=== PATIENT | male | born 1960 | race Caucasian/White ===

== ENCOUNTER 2018-02-23 16:08 | Emergency (ER) | payer SELFPAY ==
[2018-02-23 16:08] VITALS: BP 152/99; PULSE 90; RESP 18; TEMP 37; O2SAT 100; BMI 31.6
[2018-02-23] MEDS: HYDROcodone Bitartrate/Apap 5/325 Tablet PO (17:35)
[2018-02-23] MEDS: Clindamycin HCl 150 MG Capsule 450 MG PO (17:35)
--- NOTE | 2018-02-23 17:36 | ED.VISSUMM ---
- ER Visit Summary Date of Service: 02/23/18 Chief Complaint: Dental pain History of Present Illness: The patient is a 57 M presents the emergency department dental pain. Patient states he had symptoms since about gi. He states over the past 24 hours, he had increased swelling in his left lower jaw. He is not seen a dentist in years. He denies any fevers or chills. He states that it will hurt to open his mouth, but he denies any trouble opening his mouth. He said no trouble swallowing. He has no history of immunosuppression. He does not recall any trauma. Physical Examination: Exam is relatively unremarkable. There is a well-appearing male in no acute distress. Posterior oropharynx is widely patent. There is no swelling of the submental space. He has no trismus or stridor. He has widespread dental disease. There is abscess at the base of tooth #21. There is no submental spread. He has no change in phonation. His neck is supple. Test Results: [] Emergency Department Course and Treatment: Patient has localized dental abscess. There is no evidence of Zia angina. He has no trismus or stridor. He has allergy to penicillin. He will be treated with clindamycin. He was counseled on concerning symptoms and reasons to return. Patient be discharged home Treatment Plan: [] Disposition: Discharge Impression: Dental abscess of tooth #21 This note was generated with [facility] dictation software. It may contain incorrect words, spelling, and punctuation that were not noted in review of the chart prior to signing ED Disposition - Plan for ED Patient: Chief Complaint: Dental Instructions: ED Abscess Dental Prescriptions: Hydrocodone Bitart/Apap 5-325 [Mitchells 5MG-325MG] 1 tab PO Q6H PRN PRN 3 Days #10 tab PRN Reason: Pain Clindamycin [Cleocin] 300 mg PO 4X/DAY #80 cap
--- OUTSIDE RECORDS SUMMARY | 2018-04-07 16:36 | XMS RPT_ITS ---
:1960 Author Organization OH[employer] Support Name Relationship Address Phone AYALA PICKENS Unavailable [address] + [place] [address] NEGAR, CRYSTAL Unavailable [address] + [place] [address] [employer] Unavailable [address] + [place] [address] AYALA PICKENS Unavailable [address] + [place] [address] NEGAR, CRYSTAL Unavailable [address] + [place] [address] [employer] Unavailable [address] + [place] [address] AYALA PICKENS Unavailable [address] + [place] [address] NEGAR, CRYSTAL Unavailable [address] + [place] [address] [employer] Unavailable [address] + [place] [address] AYALA PICKENS Unavailable [address] + [place] [address] NEGAR, CRYSTAL Unavailable [address] + [place] [address] [employer] Unavailable [address] + [place] [address] AYALA PICKENS Unavailable [address] + [place] [address] NEGAR, CRYSTAL Unavailable [address] + [place] [address] [employer] Unavailable [address] + [place] [address] NEGAR AYALA Unavailable [address] + [place] [address] NEGAR, CRYSTAL Unavailable [address] + [place] [address] [employer] Unavailable [address] + [place] [address] Care Team Providers Name Role Phone JulianeSunil carter Attending Unavailable Primay Care Physicia, No Primary Care Unavailable Agyepong, Terry Admitting Unavailable Primay Care Physicia, No Primary Care Unavailable Tereletsky, Clint Attending Unavailable Kandice, Neto Consulting Unavailable Agyepong, Terry Admitting Unavailable Agyepong, Terry Attending Unavailable Primay Care Physicia, No Primary Care Unavailable Christi, Alexandre Consulting Unavailable Fiorita, Kofi Consulting Unavailable Tereletsky, Clint Consulting Unavailable Agyepong, Terry Admitting Unavailable Tereletsky, Clint Attending Unavailable Primay Care Physicia, No Primary Care Unavailable Christi, Alexandre Consulting Unavailable Fiorita, Kofi Consulting Unavailable Tereletsky, Clint Consulting Unavailable Agyepong, Terry Admitting Unavailable Tereletsky, Clint Attending Unavailable Primay Care Physicia, No Primary Care Unavailable Christi, Alexandre Consulting Unavailable Tereletsky, Clint Consulting Unavailable Agyepong, Terry Admitting Unavailable Tereletsky, Clint Attending Unavailable Primay Care Physicia, No Primary Care Unavailable Christi, Alexandre Consulting Unavailable Tereletsky, Clint Consulting Unavailable PEYTON ALCANTARA Attending Unavailable CONPEYTON ROBERTSON Attending Unavailable PROBLEMS PROBLEMS DATE TYPE CONDITION / CODE ATTENDING STATUS SOURCE 03/05/2018 Unknown M27.2 - Florentino Cerda Community conditions of [facility] / M27.2(ICD-10) Repository 03/01/2018 Active Cellulitis and PEYTON ALCANTARA Active [facility] abscess of mouth / ALTAG[place]ACIA Other [place] K12.2(ICD-10) Repository 03/05/2018 Unknown K08.89 - Other Sunil Cardozo Active [place] specified Community disorders of [facility] Hospital and supporting Repository structures / K08.89(ICD-10) 02/22/2018 Active Local infection of PEYTON ALCANTARA Active [facility] the skin and ALTAGRACIA Other [place] subcutaneous Repository tissue, unspecified / L08.9(ICD-10) PROCEDURES PROCEDURES No Procedure Records FoundRESULTS RESULTS DISCHARGE SUMMARY Observed: 03/05/2018 Status: F Source: [place] 10:36 AM [facility] REPOSITORY [facility] Medical Records Department [address] [place] [address] Discharge Summary 03/05/18 1030 MR#: [id number] Acct: [id number] Name: KYLIE PICKENS Rep #: [id number] : 1960 57 From: Clint Cerda DO PCP: Care Physician, No Primary Status: DIS IN Y Location: [facility]3 [id number] Discharge Date and Diagnosis Date of Admission: 03/01/18 Date of Discharge: 03/05/18 - Primary Discharge Diagnosis #1 bacterial infection of the left sqe space and tongue base without evidence of abscess formation from oral vera - Secondary Discharge Diagnosis Chronic Problems HTN (hypertension) (Chronic) Hospital Course and Treatment Operations: None Procedures: None Summary of Care Provided: The patient is a 57 year old M who was directly admitted to [place] [address] after being seen at [facility] emergency room with complaints of left jaw pain. Patient had localized swelling to the left jaw area and went to [facility] approximately a week before was given clindamycin and ibuprofen, he was then seen at the emergency room at [facility] approximately 6 days prior and given clindamycin and [place]. Patient was directly admitted to [place] [address] for further care from [facility] due to lack of oral surgeons at [facility]. Patient was admitted to [place] [address], he was placed on IV clindamycin and IV Levaquin, he was seen in consultation by infectious diseases who recommended stopping the Levaquin and continuing the clindamycin. Initially oral surgery was consulted to see the patient, however, after talking with oral surgery by phone, they requested that the patient come to their office for complete examination and agreed after discussing the patient's case that he should remain on clindamycin while in the hospital. On 03/04/18, patient was seen and examined:- Physical Exam General: Alert, Oriented x3, Cooperative, No apparent distress HEENT: Atraumatic, PERRLA, EOMI, Normocephalic, - - There is marked swelling noted over the patient's left submandibular area and over the angle of the jaw on the left Oral: Moist Mucosa Neck: Supple, Trachea Midline, Thyroid Normal Size and Texture Lungs: Clear to auscultation, Normal air movement, No rhonchi, No wheeze, No rales Cardiovascular: Regular rate, No murmurs Abdomen: Bowel Sounds Present, Soft, Non Tender, Non-Distended, No hernias noted Extremities: No clubbing, No cyanosis, No edema, Capillary Refill Less than 3 Seconds Skin: No rashes, No breakdown Musculoskeletal: No Tenderness to Palpation of Joints or Extremities Neurological: Cranial nerves II-XII grossly intact, Neuro grossly intact, Sensory exam intact to light touch and pain, Coordination normal Psych/Mental Status: Normal Affect, Appropriate, Alert and oriented to time, place, person, mood and affect Vital Signs as outlined in medical record On 03/04/18, patient was seen and examined felt to be in stable condition for discharge home, he was to follow-up with oral surgery within the week for complete exam in their office. - Physical Exam Vital Signs Temp Pulse Resp BP Pulse Ox 97.6 F L 73 16 138/97 H 96 03/04/18 09:30 03/04/18 09:30 03/04/18 09:30 03/04/18 09:30 03/04/18 09:30 Oxygen Delivery Method Room Air Weight: 99.79 kg Body Mass Index (BMI) 29.8 Intake and Output for Last 24 Hours Intake Total 732 / 732 1200 / 1200 Output Total 450 / 450 Balance 282 / 282 1200 / 1200 Discharge Activity: Return to Normal Activity Weight Bearing Status: Full weight bearing Home Medications: Medications to take at Discharge Clindamycin [Cleocin] 300 mg PO 4X/DAY #80 cap 03/04/18 Oxycodone [Oxyir] 10 - 15 mg PO Q4H PRN PRN 7 Days #30 tab 03/04/18 Following Prescrptions Were Given to Patient: Oxycodone [Oxyir] 10 - 15 mg PO Q4H PRN PRN 7 Days #30 tab PRN Reason: Severe Pain (-01/07) Clindamycin [Cleocin] 300 mg PO 4X/DAY #80 cap Primary Care Physician: Care Physician,No Primary [Primary Care Provider] - Please Follow Up With: Kofi Ulloa DDS When: this Friday Disposition: Home Minutes spent on discharge:: 32 Patient Condition:: Stable Medical Necessity - Tobacco Use Smoking Status: Current every day smoker - Last smoke about a week ago Tobacco Use: Cigarettes Meaningful Use Info Meaningful Use Diagnoses (Choose all that apply): None applicable Code Visit Inpatient E AND M: 16802 Disch Hosp 03/05/18 1036 <Electronically signed by Clint Cerda DO> Date Clint Cerda DO Cosigner Signature (if applicable): Date CC: No Primary Care Physician; Clint Cerda DO Signed DISCHARGE INSTRUCTION Observed: 03/04/2018 Status: F Source: [place] 11:56 AM [facility] REPOSITORY [facility] Medical Records Department [address] [place] [address] Instructions for Home/Discharge Instructions 03/04/18 1155 MR#: [id number] Acct: [id number] Name: KYLIE PICKENS Rep #: [id number] : 1960 57 From: Clint Cerda DO PCP: Care Physician, No Primary Status: ADM IN - Discharge Diagnoses Current Active Problems: Current Active and Chronic Problems Odontogenic infection of jaw (Acute) HTN (hypertension) (Chronic) You will use the following diet at home:: No restrictions Your food should be the consistency of: Regular Your liquids should be the consistency of: Regular/Thin Discharge Activity: Return to Normal Activity Weight Bearing Status: Full weight bearing Allergies/Adverse Reactions: Allergies Penicillins Adverse Reaction (Verified 02/23/18 16:12) Hives Medications to take at Discharge Clindamycin [Cleocin] 300 mg PO 4X/DAY #80 cap 03/04/18 Oxycodone [Oxyir] 10 - 15 mg PO Q4H PRN PRN 7 Days #30 tab 03/04/18 The following prescriptions were given: Oxycodone [Oxyir] 10 - 15 mg PO Q4H PRN PRN 7 Days #30 tab PRN Reason: Severe Pain () Clindamycin [Cleocin] 300 mg PO 4X/DAY #80 cap Primary Care Physician: Care Physician,No Primary [Primary Care Provider] - Test Results: Test results from this visit will be discussed in further detail at your follow-up appointment, if applicable. Please Follow Up With: Kofi Ulloa DDS When: this Friday03/04/18 1156 <Electronically signed by Clint Cerda DO> Date Clint Cerda DO CC: No Primary Care Physician; Alexandre Barraza MD CBC W/DIFF, AUTOMATED Collected: 03/04/2018 Status: F Source: [place] 5:42 AM [facility] REPOSITORY TYPE CODE TESTS RESULT OUT OF RANGE REFERENCE UNITS LAB L100.1000 4.4-11.0 K/mm3 Normal WBC 6.4 LAB L100.1200 4.6-6.2 M/mm3 Normal RBC 4.67 LAB L100.1300 13.0-16.5 g/dl Normal HGB 13.5 LAB L100.1400 40-54 % Normal HCT 40.9 LAB L100.1500 80-94 fL Normal MCV 87.6 LAB L100.1600 27.0-32.0 pg Normal MCH 28.9 LAB L100.1700 32-36 g/gl Normal MCHC 33.0 LAB L100.1810 11.6-14.6 % Normal RDW CV 13.0 LAB L100.1820 35.1-43.9 fl Normal RDW SD 41.1 LAB L100.1900 150-450 K/mm3 Normal PLT 238 LAB L100.2000 6.2-12.0 fl Normal MPV 10.4 LAB L100.2100 47-70 % Normal NEUT% 52.5 LAB L100.2200 19-41 % Normal LY% 30.0 LAB L100.2300 0-10 % High MONO% 13.0 LAB L100.2400 0-5 % Normal EO% 3.5 LAB L100.2500 0-1 % Normal BASO% 0.8 LAB L100.2550 0.0-0.9 % Normal IM GRAN % 0.200 Result Comment: IG% - Immature Granulocytes (promyelocytes, myelocytes and metamyelocytes) > 1% indicates that a LEFT SHIFT is Present. LAB L100.2620 2.0-7.7 X10 3/uL Normal Absolute Neut 3.4 LAB L100.2720 0.83-4.51 X10 3/ul Normal Absolute Lymph 1.91 Performed By: #### L100.0100 #### [facility] [address] [place], [address] CBC W/DIFF, AUTOMATED Collected: 03/03/2018 Status: F Source: [place] 8:30 AM [facility] REPOSITORY TYPE CODE TESTS RESULT OUT OF RANGE REFERENCE UNITS LAB L100.1000 4.4-11.0 K/mm3 Normal WBC 7.6 LAB L100.1200 4.6-6.2 M/mm3 Low RBC 4.59 LAB L100.1300 13.0-16.5 g/dl Normal HGB 13.3 LAB L100.1400 40-54 % Normal HCT 40.3 LAB L100.1500 80-94 fL Normal MCV 87.8 LAB L100.1600 27.0-32.0 pg Normal MCH 29.0 LAB L100.1700 32-36 g/gl Normal MCHC 33.0 LAB L100.1810 11.6-14.6 % Normal RDW CV 13.1 LAB L100.1820 35.1-43.9 fl Normal RDW SD 42.0 LAB L100.1900 150-450 K/mm3 Normal PLT 200 LAB L100.2000 6.2-12.0 fl Normal MPV 9.7 LAB L100.2100 47-70 % Normal NEUT% 64.4 LAB L100.2200 19-41 % Normal LY% 24.4 LAB L100.2300 0-10 % Normal MONO% 9.6 LAB L100.2400 0-5 % Normal EO% 1.1 LAB L100.2500 0-1 % Normal BASO% 0.4 LAB L100.2550 0.0-0.9 % Normal IM GRAN % 0.100 Result Comment: IG% - Immature Granulocytes (promyelocytes, myelocytes and metamyelocytes) > 1% indicates that a LEFT SHIFT is Present. LAB L100.2620 2.0-7.7 X10 3/uL Normal Absolute Neut 4.9 LAB L100.2720 0.83-4.51 X10 3/ul Normal Absolute Lymph 1.85 Performed By: #### L100.0100 #### [facility] [address] [place], [address] CONSULTATION Observed: 03/02/2018 Status: F Source: [place] 10:39 AM [facility] REPOSITORY [facility] Medical Records Department [address] [place] [address] Consultation 03/02/18 1035 MR#: [id number] Acct: [id number] Name: KYLIE PICKENS Rep #: [id number] : 1960 57 From: Neto Woodson MD PCP: Care Physician, No Primary Status: ADM MICKIE Y Location: [place] [address] Reason for Consult: Odontogenic infection Consulted by: Dr. Gama History of Present Illness: The patient is a 57 year old M [] This is a 57-year-old gentleman with a history of hypertension untreated who presents with roughly a 10-day course of progressive pain and swelling in the left side of his jaw with difficulty opening his mouth. Patient was seen in emergency department at [facility] roughly a week ago and was given oral clindamycin as well as a pain medication with no clinical improvement. Patient did have a leukocytosis and low-grade fevers upon presentation. Patient does have a history of poor dentition. No cardiopulmonary distress. No chest pain. Denies any night sweats. His symptoms initially started around which was roughly 10 days ago. He is otherwise hemodynamically stable. He does have allergy to penicillin which causes hives and blisters. Currently on fluoroquinolone levofloxacin as well as parenteral clindamycin. - Medical History Past Medical History (Chronic Problems): Chronic Problems HTN (hypertension) (Chronic) Allergies/Adverse Reactions: Allergies Penicillins Adverse Reaction (Verified 02/23/18 16:12) Hives Home Medications: Ambulatory Orders Medication Instructions Recorded Clindamycin [Cleocin] 300 mg PO 4X/DAY #80 cap 02/23/18 Vital Signs Temp Pulse Resp BP Pulse Ox 99.2 F H 80 16 129/63 H 93 03/02/18 06:26 03/02/18 06:26 03/02/18 06:26 03/02/18 06:26 03/02/18 07:50 Oxygen Delivery Method Room Air Weight: 99.79 kg Body Mass Index (BMI) 29.8 Laboratory Tests Past 24 Hrs WBC 14.8 H RBC 4.72 Hgb 13.7 Hct 41.5 MCV 87.9 MCH 29.0 MCHC 33.0 - Other Studies Radiology: [] Other Studies: [] Route of nutrition/ use of supplements: [] Nutritional Intake: [] IV Site: [] Travis Catheter: [] Patient is alert does not appear toxic. Left side of his jaw swollen with localized tenderness. No crepitus. Lungs are clear heart exam S1-S2 abdomen soft nontender his dentition is very poor. - Assessment/Plan Antibiotics: [] Assessment/Plan: [] Active and Suspected Problems Odontogenic infection of jaw (Acute) At this time we will continue empiric antimicrobial therapy in the form of levofloxacin and clindamycin. Oral surgeon has been consulted. Follow his white count and clinical course closely. 03/02/18 1039 <Electronically signed by Neto Woodson MD> Date Neto Woodson MD Cosigner Signature (if applicable): Date CC: No Primary Care Physician; Alexandre Barraza MD; Kofi Ulloa DDS Signed HISTORY AND PHYSICAL Observed: 03/02/2018 Status: F Source: [place] EXAM 9:57 AM [facility] REPOSITORY [facility] Medical Records Department [address] [place] [address] History and Physical 03/01/18 9867 MR#: [id number] Acct: [id number] Name: KYLIE PICKENS Rep #: [id number] : 1960 57 From: Terry Booth MD PCP: Care Physician, No Primary Status: ADM MICKIE Y Location: [place] [address] Problem List (1) Odontogenic infection of jaw Status: Acute (2) HTN (hypertension) Status: Chronic History of Present Illness Date of Admission: 03/01/18 Chief Complaint: Left jaw pain The patient is a 57 year old M with a significant history of hypertension who presented because of progressively worsening excruciating pain of his left jaw that started about a week and a half ago. Patient was transferred from [facility] ED because of lack of specialist to see patient. Patient described the quality of his pain as severe and aching. He reports that the pain has been radiating to his entire head but he thinks the radiation started because of excessive use of ibuprofen. His pain is aggravated with drinking. Patient reports night sweats. Patient went to [facility] about a week ago and was given clindamycin and ibuprofen. He was at our emergency department about 6 days ago and was given clindamycin p.o. and [place]. He reported that because he does not like taking narcotic medication he did not take [place] but he continued to take ibuprofen and extra strength Tylenol. Because he was not he was not getting better patient again presented to [facility] today (03-01-2018). At [facility] ED patient had a temperature of 100.6. He had a blood pressures of 170/96; 155/93; 118/72. His heart rate ranged from 84- to 92. CT of the maxillofacial with contrast at [facility] ED showed findings suggestive of extensive odontogenic infection involving the left sqe space and tongue base without evidence of abscess formation; and prominent sialoadenitis involving the left submandibular gland. At [facility] because patient reported an allergy to penicillin he was given clindamycin and Levaquin IV and he was brought to the hospital. He was also given Toradol. On presentation at our hospital patient reported feeling a little better and attributed his temporal relief to the regimen given at [facility] ED. Allergy: Patient reported that he has hives on his body and rashes on his tongue when he receives penicillin. Patient reports that the last time that he saw a dentist was years ago. He reports pulling his teeth by himself. He reported the last time that he pulled his teeth by himself was about 7 years ago. Past Medical History Past Medical History (Chronic Problems): Chronic Problems HTN (hypertension) (Chronic) Allergies Penicillins Adverse Reaction (Verified 02/23/18 16:12) Hives Home Medications: Ambulatory Orders Medication Instructions Recorded Clindamycin [Cleocin] 300 mg PO 4X/DAY #80 cap 02/23/18 Surgical History: - - Rales in left knee and ankle Lives: Alone Smoking Status: Current every day smoker - Last smoke about a week ago Tobacco Use: Cigarettes Alcohol: None Review of Systems Constitutional: Denies: Chills, Fever, Weight Change HEENT: Reports: Head Aches. Denies: Sinus Congestion, Sinus Drainage Cardiovascular: Denies: Chest Pain, Palpitations Respiratory: Denies: Cough, Shortness of breath at rest, Sputum production Gastrointestinal: Denies: Abdominal Pain, Nausea, Vomiting Genitourinary: Denies: Dysuria Musculoskeletal: Denies: Joint Pain, Joint Tenderness Skin: Denies: Rash, Wounds Neurological: Denies: Numbness, Tingling, Focal weakness Psychiatric: Denies: Anxiety, Depression, Homicidal Ideations, Suicidal Ideations Hematologic/ Lymphatic: Denies: Easy Bruising, Easy Bleeding VTE Information - Inpt Only VTE Present on Admission: No VTE Mechan Device Prophylaxis: None VTE Pharm Prophylaxis ordered?: Yes Patient Problems: Active and Suspected Problems Odontogenic infection of jaw (Acute) - Physical Exam General: Alert, Oriented x3, Cooperative HEENT: Atraumatic, - - Swelling of left maxillary and mandible area. Poor dentition with loss of multiple teeth. Tender left mandibular and maxillary area. Neck: Supple, No JVD, Negative Carotid Bruits Lungs: Clear to auscultation, Normal air movement Cardiovascular: Regular rate, No murmurs Abdomen: Bowel Sounds Present, Soft, Non Tender Extremities: No edema, Capillary Refill Less than 3 Seconds Skin: No rashes, No breakdown Musculoskeletal: No Tenderness to Palpation of Joints or Extremities Neurological: Neuro grossly intact Psych/Mental Status: Normal Affect, Appropriate Vital Signs Temp Pulse Resp BP Pulse Ox 99.8 F H 94 18 145/86 H 95 03/01/18 22:09 03/01/18 22:09 03/01/18 22:09 03/01/18 22:09 03/01/18 22:09 Oxygen Delivery Method Room Air Weight: 99.79 kg Body Mass Index (BMI) 29.8 Assessment/Plan All Active Problems Odontogenic infection of jaw (Acute) The patient is a 57 year old M with a significant history of hypertension who was transferred from [facility] ED because of progressively worsening excruciating pain of his left jaw that started about a week and a half ago and with radiographic evidence of extensive odontogenic infection involving the left sqe space and tongue base without evidence of abscess formation; as well as prominence sialoadenitis involving the left submandibular gland. Extensive odontogenic infection with Sialoadenitis We will continue patient on clindamycin IV and Levaquin IV that was started from [facility] ED. Initially patient was started on morphine IV as needed for pain. Because he continued to have severe pain with IV morphine, his pain regimen was changed to Dilaudid IV. However because he continued to have pain, Toradol IV was added to his regimen. Supportive treatment with IV fluids and as needed antiemetics. Tylenol for fever. Consults: Oral/Maxillofacial surgeon and ID specialist to optimize management. Hypertension Patient reports previous history of hypertension for which he was taking blood pressure medication. However he reports not taking blood pressure medication for a while. It could be his pain causing elevated blood pressures or essential hypertension. Hydralazine as needed for pain.. Tobacco abuse Reportedly patient has not smoked for about 1 week. The day before his admission he smoked tobacco and felt very nauseous. Patient was counseled. He declines nicotine patch. He is confident that he will not smoke again. DVT prophylaxis Subcutaneous heparin. Code Visit Inpatient E AND M: 35883 Init Hosp L3 03/02/18 0957 <Electronically signed by Terry Booth MD> Date Terry Booth MD Cosigner Signature: Date (if applicable) CC: No Primary Care Physician; Terry Booth MD Signed CBC W/DIFF, AUTOMATED Collected: 03/02/2018 Status: F Source: [place] 5:15 AM [facility] REPOSITORY TYPE CODE TESTS RESULT OUT OF RANGE REFERENCE UNITS LAB L100.1000 4.4-11.0 K/mm3 High WBC 14.8 LAB L100.1200 4.6-6.2 M/mm3 Normal RBC 4.72 LAB L100.1300 13.0-16.5 g/dl Normal HGB 13.7 LAB L100.1400 40-54 % Normal HCT 41.5 LAB L100.1500 80-94 fL Normal MCV 87.9 LAB L100.1600 27.0-32.0 pg Normal MCH 29.0 LAB L100.1700 32-36 g/gl Normal MCHC 33.0 LAB L100.1810 11.6-14.6 % Normal RDW CV 13.2 LAB L100.1820 35.1-43.9 fl Normal RDW SD 42.5 LAB L100.1900 150-450 K/mm3 Normal PLT 211 LAB L100.2000 6.2-12.0 fl Normal MPV 10.2 LAB L100.2100 47-70 % High NEUT% 80.5 LAB L100.2200 19-41 % Low LY% 9.0 LAB L100.2300 0-10 % High MONO% 10.1 LAB L100.2400 0-5 % Normal EO% 0.1 LAB L100.2500 0-1 % Normal BASO% 0.1 LAB L100.2550 0.0-0.9 % Normal IM GRAN % 0.200 Result Comment: IG% - Immature Granulocytes (promyelocytes, myelocytes and metamyelocytes) > 1% indicates that a LEFT SHIFT is Present. LAB L100.2620 2.0-7.7 X10 3/uL High Absolute Neut 11.9 LAB L100.2720 0.83-4.51 X10 3/ul Normal Absolute Lymph 1.34 Performed By: #### L100.0100 #### [facility] [address] [place], [place], [address] BASIC METABOLIC Collected: 03/02/2018 Status: F Source: [place] PROFILE (BMP) 5:15 AM [facility] REPOSITORY TYPE CODE TESTS RESULT OUT OF RANGE REFERENCE UNITS LAB L501.0100 74-106 mg/dL High GLU 111 Result Comment: Fasting Glucose result from 100 to 125 mg/dL suggests IMPAIRED HOMEOSTASIS per A.D.A. criteria. Please note revised GLUCOSE reference range effective 2017. LAB L501.1000 7-18 mg/dL Normal BUN 17 LAB L501.1100 0.70-1.30 mg/dL Normal CREAT,SERUM 1.04 Result Comment: The validity of the calculated GFR AND GFRAA in patients over 70 years has not been determined. Clinical correlation is essential. LAB L501.1110 >60 mL/min Normal EST GFR 78 Result Comment: Non- GFR Calc LAB L501.1115 >60 mL/min Normal EST GFR - AA 94 Result Comment: GFR Calc LAB L501.1255 ml/min Normal Estimated CRCL 84.98 LAB L501.1300 10-20 RATIO Normal BUN/CRE 16.3 LAB L501.2200 8.5-10 mg/dL Normal .1 CA 8.5 LAB L501.5300 136-14 mmol/L Normal 5 NA 139 LAB L501.5600 3.5-5. mmol/L Normal 1 K 3.7 LAB L501.5900 98-107 mmol/L Normal CL 103 LAB L501.6100 21.0-3 mmol/L Normal 2.0 CO2 26.0 LAB L501.6200 5-15 Normal GAP 10 Performed By: #### L500.2500 #### [facility] [place], [address] ED NOTE Observed: 03/01/2018 Status: COMPLETED Source: [place] 9:13 PM [facility] REPOSITORY HNO ID: [id number] Author: Diana AcevedoRn) Sonal, RN Service: Emergency Medicine Author Type: Registered Nurse Type: ED Notes Filed: 03/07/2018 3:38 AM Note Text: CHART ACCESSED FOR PI CHART AUDIT on 03/07/18 @ 0338 ED NOTE Observed: 03/01/2018 Status: COMPLETED Source: [place] 9:05 PM [facility] REPOSITORY HNO ID: [id number] Author: Aida (Rn) Edd, RN Service: Emergency Medicine Author Type: Registered Nurse Type: ED Notes Filed: 03/01/2018 9:13 PM Note Text: Pt w/ swelling to left face unchanged. Pt denies any pain at this time. Pt has been dozing past 2hrs. Resp easy. Skin warm AND dry. Saline lock x2 remain patent AND in place. Pt instructed to present to [place] ED for admission to hospital as a direct admit to room 314. Also instructed to remain NPO. Verbalized understanding. ED NOTE Observed: 03/01/2018 Status: COMPLETED Source: [place] [address]:[id number] PM [facility] REPOSITORY HNO ID: [id number] Author: Aida AcevedoRnTelma Puga RN Service: Emergency Medicine Author Type: Registered Nurse Type: ED Notes Filed: 03/01/2018 7:22 PM Note Text: Patient informed: the name of medication, why we are giving it, possible side effects, what they may expect to feel, and was offered a chance to ask questions, prior to the administration of clindamycin. ED NOTE Observed: 03/01/2018 Status: COMPLETED Source: [place] 6:53 PM [facility] REPOSITORY HNO ID: [id number] Author: Rosie Mallory RN Service: Emergency Medicine Author Type: Registered Nurse Type: ED Notes Filed: 03/01/2018 6:53 PM Note Text: Patient informed: the name of medication, why we are giving it, possible side effects, what they may expect to feel, and was offered a chance to ask questions, prior to the administration of toradol. ED NOTE Observed: 03/01/2018 Status: COMPLETED Source: [place] 6:53 PM [facility] REPOSITORY HNO ID: [id number] Author: Rosie Mallory RN Service: Emergency Medicine Author Type: Registered Nurse Type: ED Notes Filed: 03/01/2018 6:56 PM Note Text: Patient ambulates to bathroom ED NOTE Observed: 03/01/2018 Status: COMPLETED Source: [place] 6:44 PM [facility] REPOSITORY HNO ID: [id number] Author: Rosie Mallory RN Service: Emergency Medicine Author Type: Registered Nurse Type: ED Notes Filed: 03/01/2018 6:44 PM Note Text: Warm blanket,beverage and pillow given to patient. Lights turned off. ED PROV NOTE Observed: 03/01/2018 Status: COMPLETED Source: [place] 5:49 PM [facility] REPOSITORY HNO ID: [id number] Author: Peyton Walker DO Service: Emergency Medicine Author Type: Physician Type: ED Provider Notes Filed: 03/01/2018 8:23 PM Note Text: ED Provider Note Patient Name: Kylie Pickens Sr SERVICE DATE: 03/01/18 History Patient presents with: Face Pain Kylie Pickens Sr is a 57 year old male with history of no chronic medical problems who presents with Face Pain. Patient took prescription medication prior to arrival. - Symptoms began 1.5 weeks prior to arrival. - Severity: moderate - Timing: constant - Quality: sore - Face Pain is exacerbated by movement, chewing, palpation. - Face Pain is not exacerbated by swallowing. - Symptoms are associated with facial swelling. - Symptoms are not associated with chills, fever, nausea, rash, shortness of breath, vomiting and neck pain, difficulty swallowing, sore throat, dental pain. - Improved by nothing. - Not improved by clindamycin. Patient presents with left facial swelling that started 1.5 weeks ago. He came to the ED 1 week ago, requesting just antibiotic and refused labs or imaging at that time. ? Source of the swelling at that time and patient was started on clindamycin, but has had no improvement. PAST MEDICAL HISTORY Diagnosis Date - Broken lower leg Left leg/ Had rods placed PAST SURGICAL HISTORY Procedure Laterality Date - ORTHOPEDICS SURGERY HX left lower leg FAMILY HISTORY Problem Relation Age of Onset - Heart Father - Hypertension Brother - Heart Mother Social History Social History Main Topics - Smoking status: Current Every Day Smoker Packs/day: 0.50 Types: Cigarettes - Smokeless tobacco: Never Used - Alcohol use No - Drug use: No - Sexual activity: Not on file ALLERGIES Allergen Reactions - Penicillins Hives, Itching Review of Systems Constitutional: Negative for chills and fever. HENT: Positive for facial swelling. Negative for congestion, dental problem, drooling, ear discharge, ear pain, rhinorrhea, sore throat and trouble swallowing. Eyes: Negative for photophobia, pain, redness and visual disturbance. Respiratory: Negative for shortness of breath and stridor. Cardiovascular: Negative for chest pain. Gastrointestinal: Negative for nausea and vomiting. Musculoskeletal: Negative for neck pain and neck stiffness. Skin: Negative for rash and wound. Allergic/Immunologic: Negative for immunocompromised state. Neurological: Negative for weakness, numbness and headaches. Psychiatric/Behavioral: Negative for agitation and confusion. Physical Exam BP 165/93 Pulse 93 Temp (Src) 100.2 (Temporal Artery) Resp 18 Ht 6' 0 (1.83m) Wt 215 lb (97.5kg) SpO2 98% BMI 29.15 kg/(m2). Physical Exam Constitutional: He is oriented to person, place, and time. He appears well-developed and well-nourished. No distress. HENT: Head: Normocephalic and atraumatic. Head is without raccoon's eyes, without abrasion, without contusion, without laceration, without right periorbital erythema and without left periorbital erythema. Right Ear: External ear normal. Left Ear: External ear normal. Mouth/Throat: Uvula is midline, oropharynx is clear and moist and mucous membranes are normal. No trismus in the jaw. No uvula swelling. No oropharyngeal exudate, posterior oropharyngeal edema or posterior oropharyngeal erythema. There is swelling along the left middle buccal mucosa down adjacent to left gum. No tenderness to palpate the teeth. No cellulitis of the face. No crepitus. There is soft fullness left submandibular area, no firmness to the left submandibular area, no elevation of the tongue. Eyes: Conjunctivae are normal. No scleral icterus. Neck: Trachea normal, normal range of motion, full passive range of motion without pain and phonation normal. Neck supple. No JVD present. Cardiovascular: Normal rate, regular rhythm and intact distal pulses. Pulmonary/Chest: Effort normal and breath sounds normal. No stridor. Neurological: He is alert and oriented to person, place, and time. No cranial nerve deficit. Skin: Skin is warm and dry. Capillary refill takes less than 2 seconds. No rash noted. He is not diaphoretic. No erythema. No pallor. Psychiatric: He has a normal mood and affect. His behavior is normal. Nursing note and vitals reviewed. Diagnostic Testing ED Labs Ordered and Reviewed CBC + AUTO DIFF (AK,AV,EU,FV,HL,MIGUEL,MM,SP) - Abnormal; Notable for the following: Result Value Ref Range WBC 13.4 (*) 4.8 - 10.8 thou/cmm Abs. Neut(Anc) 10.72 (*) 3.00 - 5.67 thou/cmm All other components within normal limits BASIC METABOLIC PANEL (AK,AV,EU,FV,HL,MIGUEL,MM,SP) MDRD GFR Procedures ED Course / Clinical Impression Clinical Impressions as of Mar 01 2010 Infection of mouth Infection, face MDM / Disposition / Plan Patient agreeable to labs and CT scan today. These have been ordered. Delay on CT results. I discussed CT results and need for transfer. Patient remains in no distress, air way intact, no change in voice. Vitals stable. He is only willing to be admitted to [place]. He is refusing to go to [place] or [facility]. He lives in [place]. Patient has a severe allergy to PCN, so I am limited in antibiotic choose. I have given him IV clindamycin and Levaquin for now. I spoke with Dr. Booth, hospitalist at [place], he is accepting for transfer. I have discussed acceptance with the patient. Patient is refusing ambulance transport. He states he wants to drive himself to [place]. He will sign out AMA since he is refusing transfer by ambulance where he can be continuously monitored. He states he will drive directly to [facility]. DispositionThe patient was AMA (transfer to [place], but refusing transport, so signed out AMA to drive himself to [place]). Condition at disposition is stable. SIGNATURE: Peyton Walker, DO Peyton Walker, 03/01/182022 ED NOTE Observed: 03/01/2018 Status: COMPLETED Source: [place] 5:21 PM [facility] REPOSITORY HNO ID: [id number] Author: Rosie Veloz) ARISTEO Mallory Service: Emergency Medicine Author Type: Registered Nurse Type: ED Notes Filed: 03/01/2018 5:21 PM Note Text: Beverage given to patient. He is sitting at bedside. Conversing normaly. ED NOTE Observed: 03/01/2018 Status: COMPLETED Source: [place] 4:38 PM [facility] REPOSITORY HNO ID: [id number] Author: Rosie Veloz) Mohamud, ARISTEO Service: Emergency Medicine Author Type: Registered Nurse Type: ED Notes Filed: 03/01/2018 7:02 PM Note Text: Returned from radiology CT MAXILLOFACIAL WITH Observed: 03/01/2018 Status: F Source: [employer] CONTRAST 4:38 PM [facility] REPOSITORY Performed at [facility] APPROVED BY: GIOVANNY SHERWOOD MD EXAMINATION: CT MAXILLOFACIAL WITH CONTRAST CLINICAL HISTORY: Facial pain. Difficulty opening mouth. Technique: Spiral high resolution axial contrast enhanced images were obtained through the facial bones with sagittal and coronal planar reconstructions. MQ: [id number] Contrast: Intravenous 100 ml of Omnipaque 300 Dose-Length Product (DLP): 577 mGy*cm. CT Dose Reduction Employed: Iterative recon and mAs-kVp adjusted using patient size-age COMPARISON: None. RESULT: Soft Tissues: Evaluation is quite limited by extensive artifact from gross patient motion. Within this constraint, there is mild asymmetric enlargement of the left medial pterygoid muscle and moderate enlargement of the insertion of the left masseter muscle. There is also a large dental caries in the residual left third mandibular molar which, given the distribution of the above findings, would sug gest odontogenic infection with contiguous involvement of the left masseter space. There is also asymmetric enlargement of the underlying left submandibular gland with prominent subcutaneous edema in t he left submandibular region suggesting sialoadenitis. No evidence of radiopaque calculus along the course of [place]'s duct on the left. There is loss in definition of the normal soft tissue planes o f the intrinsic and extrinsic muscles of the tongue to the left of midline in this region suggesting contiguous inflammation as well. No clear evidence of an extraluminal fluid collection to suggest ab scess formation. The right submandibular and both parotid glands appear to be within normal limits. Facial bones: No clear evidence of bony destruction of the mandible on the left. No evidence of acute fracture. Extensive periodontal disease in the residual teeth. Orbits: No evidence of an acute fracture. The globes are intact. The soft tissue planes of the orbits are maintained. Paranasal Sinuses: Mild mucosal thickening is noted in the anterior ethmoid and maxillary sinuses. The paranasal sinuses are otherwise clear. Foreign Bodies: No evidence of radiopaque foreign bodies. Other: Left temporal bone is somewhat sclerotic suggesting the sequelae of prior infection. There may also be a small amount of retained fluid in left mastoid air cells. The visualized brain parenchy ma is within normal limits. There is carotid calcifications are noted in the carotid siphons and distal left vertebral artery. IMPRESSION: Findings suggesting extensive odontogenic infection involving the left sqe space and tongue base without evidence of abscess formation. Prominent sialoadenitis involving the left submandibular gland. HEMOGRAM/MANUAL DIFF Collected: 03/01/2018 Status: F Source: [place] 4:08 PM [facility] REPOSITORY TYPE CODE TESTS RESULT OUT OF REFERENCE UNITS RANGE LAB LWBC(LOINC 4.8-10.8 thou/cmm ) WBC High 13.4 LAB LRBC(LOINC 4.60-6.20 mil/cmm ) RBC 5.26 LAB LHGB(LOINC 14.0-18.0 g/dL ) Hgb 15.5 LAB LHCT(LOINC 42.0-52.0 % ) Hct 46.4 LAB LMCV(LOINC 80.0-94.0 fl ) MCV 88.2 LAB LMCH(LOINC 27.0-31.0 pg ) MCH 29.5 LAB LMCHC(LOIN 32.0-36.0 % C) MCHC 33.4 LAB LRDW(LOINC 11.5-15.9 % ) RDW 13.2 LAB LPLT(LOINC 150-400 thou/cmm ) Platelet 245 LAB LMPV(LOINC 7.1-10.5 fl ) MPV 10.2 LAB LDTYP(LOIN C) Diff Type Manual Diff LAB LSEGT(LOIN % C) Seg Neutrophil 80.0 LAB LLYMP(LOIN % C) Lymphocyte 14.0 LAB LMNO(LOINC % ) Monocyte 4.0 LAB NANCY(LOINC % ) Eosinophil 0.0 LAB LBASO(LOIN % C) Basophil 0.0 LAB LATYP(LOIN % C) Atypical Lymph 2.0 LAB LSEGN(LOIN 3.00-5.67 thou/cmm C) Abs. High Neut (ANC) 10.72 LAB LLYMN(LOIN 1.50-3.65 thou/cmm C) Abs. Lymph 2.14 LAB LMONN(LOIN 0.20-1.00 thou/cmm C) Abs. [place] 0.54 LAB LEOSN(LOIN 0.00-0.41 thou/cmm C) Abs. Eosin 0.00 LAB LBASN(LOIN 0.00-0.08 thou/cmm C) Abs. Baso 0.00 LAB LPLES(LOIN C) Platelet Estimate Normal LAB LWBCM(LOIN C) WBC Morphology see below Result Comment: Toxic vacuoles present LAB LTOXC(LOINC) Toxic Granulation Slight LAB LRBCM(LOINC) RBC Morphology Normal Performed By: #### LMCBD #### [place] [address] BASIC PANEL Collected: 03/01/2018 Status: F Source: [facility] 4:08 PM HEALTH SYSTEM REPOSITORY TYPE CODE TESTS RESULT OUT OF REFERENCE UNITS RANGE LAB [employer](LOINC) 136-145 mEq/L Sodium Blood 139 LAB LK(LOINC) 3.5-5.1 mEq/L Potassium Blood 4.1 LAB LCL(LOINC) 98-107 mEq/L Chloride Blood 102 LAB LCO2(LOINC 21-32 mEq/L ) CO2 Blood 27 LAB LGLU(LOINC 70-99 mg/dL ) Glucose Blood 95 LAB LBUN(LOINC 7-25 mg/dL ) BUN Blood 18 LAB LCREA(LOIN 0.67-1.17 mg/dL C) Creatinine Blood 1.00 LAB LCA(LOINC) 8.5-10.1 mg/dL Calcium Blood 9.5 LAB LANGP(LOIN 8-20 C) Anion Gap 14 LAB LBNCR(LOIN 10-20 C) BUN/Creatinine 18 Ratio Performed By: #### LP8 #### [facility] [address] [place] [address] MDRD EGFR Collected: 03/01/2018 Status: F Source: [facility] 4:08 PM HEALTH SYSTEM REPOSITORY TYPE CODE TESTS RESULT OUT OF RANGE REFERENCE UNITS LAB LGFRF(LOINC >60mL/min/1.73m ) 2 eGFR >60 Result Comment: If the patient is , multiply the result by 1.210. Performed By: #### LGFR #### [facility] [address] [place] [address] ED NOTE Observed: 03/01/2018 Status: COMPLETED Source: [place] 3:48 PM [facility] REPOSITORY O ID: [id number] Author: Orlando (Rn) Anita RN Service: Emergency Medicine Author Type: Registered Nurse Type: ED Notes Filed: 03/01/2018 3:49 PM Note Text: Pt states have had left sided facial swelling and pain for one week. Pt was seen here for same one week ago Friday. Pt states he has been taking AB Rx with no improvement or relief. EMERGENCY DEPARTMENT Observed: 02/23/2018 Status: F Source: [place] SUMMARY 8:29 PM [facility] REPOSITORY [facility] Medical Records Department [address] [place] [address] Emergency Department Summary 02/23/18 1736 MR#: [id number] Acct: [id number] Name: KYLIE PICKENS Rep #: [id number] : 1960 57 From: Sunil Cardozo MD PCP: Care Physician, No Primary Status: DEP ER - ER Visit Summary Date of Service: 02/23/18 Chief Complaint: Dental pain History of Present Illness: The patient is a 57 M presents the emergency department dental pain. Patient states he had symptoms since about . He states over the past 24 hours, he had increased swelling in his left lower jaw. He is not seen a dentist in years. He denies any fevers or chills. He states that it will hurt to open his mouth, but he denies any trouble opening his mouth. He said no trouble swallowing. He has no history of immunosuppression. He does not recall any trauma. Physical Examination: Exam is relatively unremarkable. There is a well-appearing male in no acute distress. Posterior oropharynx is widely patent. There is no swelling of the submental space. He has no trismus or stridor. He has widespread dental disease. There is abscess at the base of tooth #21. There is no submental spread. He has no change in phonation. His neck is supple. Test Results: [] Emergency Department Course and Treatment: Patient has localized dental abscess. There is no evidence of Zia angina. He has no trismus or stridor. He has allergy to penicillin. He will be treated with clindamycin. He was counseled on concerning symptoms and reasons to return. Patient be discharged home Treatment Plan: [] Disposition: Discharge Impression: Dental abscess of tooth #21 This note was generated with [employer] dictation software. It may contain incorrect words, spelling, and punctuation that were not noted in review of the chart prior to signing ED Disposition - Plan for ED Patient: Chief Complaint: Dental Instructions: ED Abscess Dental Prescriptions: Hydrocodone Bitart/Apap 5-325 [[place] 5MG-325MG] 1 tab PO Q6H PRN PRN 3 Days #10 tab PRN Reason: Pain Clindamycin [Cleocin] 300 mg PO 4X/DAY #80 cap What to do if you have Problems For any increased pain, shortness of breath, bleeding, nausea or vomiting, chest pain, or any unexpected problems, contact your Primary Care Provider. Call [email or web address] ([phone]) or report to the closest Emergency Room. Call 911 if necessary. 02/23/182028 <Electronically signed by Sunil Cardozo MD> Date Sunil Cardozo MD Cosigner Signature (If Indicated): Date CC: No Primary Care Physician ED NOTE Observed: 02/22/2018 Status: COMPLETED Source: [place] 11:46 AM [facility] REPOSITORY HNO ID: [id number] Author: Cori AcevedoRn) ARISTEO Yang Service: Emergency Medicine Author Type: Registered Nurse Type: ED Notes Filed: 02/22/2018 11:47 AM Note Text: PT states he doesn't like doctors, doesn't need doctors. Refuses all diagnostic exams. Antibiotic reviewed with patient. Discharge instructions given. All questions answered, no further questions or concerns. Pt ambulated to lobby with a steady and independent gait. ED NOTE Observed: 02/22/2018 Status: COMPLETED Source: [place] 11:25 AM [facility] REPOSITORY HNO ID: [id number] Author: Desire AcevedoRn) ARISTEO Seay Service: Emergency Medicine Author Type: Registered Nurse Type: ED Notes Filed: 02/22/2018 11:48 AM Note Text: Dr alcantara at bedside speaking with pt regarding plan of care and reasons she has ordered the iv, bloodwork and ct. Pt continues to refuse work up ED NOTE Observed: 02/22/2018 Status: COMPLETED Source: [place] 11:20 AM [facility] REPOSITORY HNO ID: [id number] Author: Desire (Rn) ARISTEO Seay Service: Emergency Medicine Author Type: Registered Nurse Type: ED Notes Filed: 02/22/2018 11:21 AM Note Text: Pt refusing iv, bloodwork and ct, told pt we will have the dr come talk to him, dr alcantara made aware ED PROV NOTE Observed: 02/22/2018 Status: COMPLETED Source: [place] 11:16 AM [facility] [place] REPOSITORY HNO ID: [id number] Author: Peyton Walker DO Service: Emergency Medicine Author Type: Physician Type: ED Provider Notes Filed: 02/22/2018 1:28 PM Note Text: ED Provider Note Patient Name: Kylie Pickens Sr SERVICE DATE: 02/22/18 History Patient presents with: Ear Pain Face Pain Kylie Pickens Sr is a 57 year old male with history of no chronic medical problems who presents with Ear Pain and Face Pain. Patient took nothing for this prior to arrival. - Symptoms began 4 days prior to arrival. - Severity: severe - Timing: constant - Quality: sharp and sore - Ear Pain and Face Pain is exacerbated by movement palpation. - Ear Pain and Face Pain is not exacerbated by rest. - Symptoms are associated with facial swelling. - Symptoms are not associated with tooth pain, chills, fever and sore throat, difficulty swallowing, neck pain, chest pain or shortness of breath. - Improved by nothing. - Not improved by anything. Patient states he started with left ear pain on Friday, then left jaw/face pain and swelling. He states he has not had any issues in a long time with his teeth on that side. He states he has had no fever or chills. No neck pain. No chest pain or shortness of breath. He states he has pain with anything touching it, trying to eat anything or moving his jaw. PAST MEDICAL HISTORY Diagnosis Date - Broken lower leg Left leg/ Had rods placed PAST SURGICAL HISTORY Procedure Laterality Date - ORTHOPEDICS SURGERY HX left lower leg FAMILY HISTORY Problem Relation Age of Onset - Heart Father - Hypertension Brother - Heart Mother Social History Social History Main Topics - Smoking status: Current Every Day Smoker Packs/day: 1.00 Types: Cigarettes - Smokeless tobacco: Never Used - Alcohol use No - Drug use: No - Sexual activity: Not on file ALLERGIES Allergen Reactions - Penicillins Hives, Itching Review of Systems Constitutional: Negative for chills and fever. HENT: Positive for ear pain and facial swelling. Negative for congestion, dental problem, drooling, ear discharge, sinus pain, sinus pressure, sore throat, trouble swallowing and voice change. Eyes: Negative for photophobia, pain, redness and visual disturbance. Respiratory: Negative for shortness of breath and stridor. Cardiovascular: Negative for chest pain. Gastrointestinal: Negative for nausea and vomiting. Musculoskeletal: Negative for neck pain and neck stiffness. Skin: Negative for rash and wound. Allergic/Immunologic: Negative for immunocompromised state. Neurological: Negative for weakness, numbness and headaches. Psychiatric/Behavioral: Negative for agitation and confusion. Physical Exam BP 173/103 Pulse 103 Temp 98.2 Resp 18 Ht 6' 0 (1.83m) Wt 215 lb (97.5kg) SpO2 99% BMI 29.15 kg/(m2). Physical Exam Constitutional: He is oriented to person, place, and time. He appears well-developed and well-nourished. No distress. HENT: Head: Normocephalic and atraumatic. Right Ear: External ear normal. Left Ear: External ear normal. Mouth/Throat: Uvula is midline, oropharynx is clear and moist and mucous membranes are normal. Oral lesions (large swelling on left buccal mucousa) present. No trismus in the jaw. Abnormal dentition. No uvula swelling. Facial swelling to left face, no facial cellulitis There is a large swelling along the buccal mucosa of the left mouth, tender to touch, no active drainage. Patient has multiple missing teeth, no obvious extension from the gum or the few remaining teeth present on the left lower gum. Eyes: Conjunctivae are normal. No scleral icterus. Neck: Trachea normal, normal range of motion, full passive range of motion without pain and phonation normal. Neck supple. No JVD present. Cardiovascular: Normal rate and regular rhythm. Pulmonary/Chest: Effort normal and breath sounds normal. No stridor. No respiratory distress. Neurological: He is alert and oriented to person, place, and time. No cranial nerve deficit. Skin: Skin is warm and dry. Capillary refill takes less than 2 seconds. No rash noted. He is not diaphoretic. No erythema. No pallor. Psychiatric: He has a normal mood and affect. His behavior is normal. Nursing note and vitals reviewed. Diagnostic Testing ED Labs Ordered and Reviewed - No data to display Procedures ED Course / Clinical Impression Clinical Impressions as of Feb 22 1130 Facial infection - parotid gland vs tooth etiology?? MDM / Disposition / Plan I discussed labs, CT of face to determine the etiology of the swelling/infection. Time: 1128 am Patient states he does not want all the labs and CT done and just wants an antibiotic. He knows it's an infection and he's not dying so he does not want to spend a couple hours in the ED. All orders cancelled due to patient refusing. I will prescribe clindamycin as he has a PCN allergy. ? Source of swelling/infection from tooth or parotid?? Instructed to return to the ED for new/worsening symptoms, otherwise follow up with primary. He is agreeable to plan. Disposition The patient was discharged. Counseled patient regarding suspected diagnosis. As well as the need for follow-up. Discharged home with verbal and written instructions. They were instructed to return as needed for persistent or worsening symptoms or any new concerns. Condition at disposition is stable. SIGNATURE: DO Peyton Barroso DO 02/22/18 1328 ED NOTE Observed: 02/22/2018 Status: COMPLETED Source: [place] 11:02 AM [facility] REPOSITORY HNO ID: [id number] Author: aBrbara Guillermo (Rn) ARISTEO Dasilva Service: (none) Author Type: Registered Nurse Type: ED Notes Filed: 02/22/2018 11:02 AM Note Text: Steady gait to ED bed 7 C/om left ear, and jaw pain since Friday ED NOTE Observed: 11/30/2017 Status: COMPLETED Source: [place] 5:51 PM [facility] MAIN CAMP[facility] REPOSITORY HNO ID: [id number] Author: Nikia AcevedoRn) ARISTEO Deleon Service: Emergency Medicine Author Type: Registered Nurse Type: ED Notes Filed: 12/04/2017 8:23 AM Note Text: Chart accessed for culture results Observed: 11/30/2017 Status: F Source: [employer] [facility] 5:35 PM [facility] SYSTEM REPOSITORY Test performed at [facility] Moderate Gram positive cocci in clusters Few Polymorphonuclear leukocytes ORGANISM: Staphylococcus aureus (ID: 1) Many Performed By: #### C_AER #### [place] [address] Observed: 11/30/2017 Status: CANCELLED Source: [employer] [facility] 5:35 PM [facility] REPOSITORY Test performed at [facility] ED NOTE Observed: 11/30/2017 Status: COMPLETED Source: [place] 5:26 PM [facility] REPOSITORY HNO ID: [id number] Author: Patrice (Rn) ARISTEO Cordoba Service: Emergency Medicine Author Type: Registered Nurse Type: ED Notes Filed: 11/30/2017 5:26 PM Note Text: Doctor at Bedside for IANDD ED PROV NOTE Observed: 11/30/2017 Status: COMPLETED Source: [place] 5:09 PM [facility] REPOSITORY HNO ID: [id number] Author: Peyton Walker DO Service: Emergency Medicine Author Type: Physician Type: ED Provider Notes Filed: 11/30/2017 5:37 PM Note Text: ED Provider Note Patient Name: Kylie Pickens Sr SERVICE DATE: 11/30/17 History Patient presents with: Abscess Kylie Pickens Sr is a 56 year old male with history of no chronic medical problems who presents with Abscess. Patient took nothing for this prior to arrival. - Symptoms began 1.5 days prior to arrival. - Severity: moderate - Timing: constant - Quality: sore - Abscess is exacerbated by nothing. - Abscess is not exacerbated by anything. - Symptoms are associated with muscle stiffness. - Symptoms are not associated with chills, fever, nausea, rash, shortness of breath and vomiting. - Improved by nothing. - Not improved by rest. Patient is not sure if he got bit by a spider. He did not see a spider bite. He states he has no fever, vomiting, shortness of breath. Muscles feels a little stiff. PAST MEDICAL HISTORY Diagnosis Date - Broken lower leg Left leg/ Had rods placed No past surgical history on file. FAMILY HISTORY Problem Relation Age of Onset - Heart Father - Hypertension Brother - Heart Mother Social History Social History Main Topics - Smoking status: Current Every Day Smoker Packs/day: 0.50 Types: Cigarettes - Smokeless tobacco: Never Used - Alcohol use No - Drug use: No - Sexual activity: Not on file ALLERGIES Allergen Reactions - Penicillins Hives, Itching Review of Systems Constitutional: Negative for chills and fever. HENT: Negative for sore throat, trouble swallowing and voice change. Eyes: Negative for photophobia and visual disturbance. Respiratory: Negative for shortness of breath and stridor. Gastrointestinal: Negative for nausea and vomiting. Musculoskeletal: Negative for arthralgias. Skin: Positive for wound. Negative for rash. Allergic/Immunologic: Negative for immunocompromised state. Neurological: Negative for weakness and numbness. Psychiatric/Behavioral: Negative for agitation and confusion. Physical Exam BP 141/100 Pulse 93 Temp 98 Resp 16 Ht 6' 0 (1.83m) Wt 235 lb (106.6kg) SpO2 98% BMI 31.86 kg/(m2). Physical Exam Constitutional: He is oriented to person, place, and time. He appears well-developed and well-nourished. Eyes: Conjunctivae are normal. Neck: Normal range of motion. No JVD present. Cardiovascular: Normal rate and regular rhythm. Pulmonary/Chest: Effort normal and breath sounds normal. No stridor. Neurological: He is alert and oriented to person, place, and time. Skin: Skin is warm, dry and intact. Capillary refill takes less than 2 seconds. No rash noted. 3.5 cm x 1 cm semi-circular firmness with central scab to the right flank with localized cellulitis. No necrosis. No active drainage. No crepitus. No bite dawn seen. Psychiatric: He has a normal mood and affect. His behavior is normal. Nursing note and vitals reviewed. Diagnostic Testing ED Labs Ordered and Reviewed - No data to display INCISION/DRAINAGE Date/Time: 11/30/2017 5:33 PM Performed by: PEYTON WALKER Authorized by: PEYTON WALKER Consent: Consent obtained: Verbal Consent given by: Patient Risks discussed: Bleeding, pain and infection Alternatives discussed: No treatment, observation and referral Location: Type: Abscess Size: 3.5 x 1 cm Location: Trunk Trunk location: Back Pre-procedure details: Skin preparation: Betadine Anesthesia (see MAR for exact dosages): Anesthesia method: Local infiltration Local anesthetic: Lidocaine 1% w/o epi Procedure type: Complexity: Simple Procedure details: Incision types: Single straight Incision depth: Dermal Scalpel blade: 11 Wound management: Probed and deloculated Drainage: Serosanguinous Drainage amount: Scant Wound treatment: Wound left open Packing materials: None Post-procedure details: Patient tolerance of procedure: Tolerated well, no immediate complications ED Course / Clinical Impression Clinical Impressions as of Nov 30 1732 Abscess MDM / Disposition / Plan Patient agrees to IANDD No significant drainage. Small serosanguinous drainage sent for culture. Antibiotics will be prescribed. I discussed with the patient to monitor the area and return to the ED if there is any new/worsening symptoms. Follow up with primary otherwise. Disposition The patient was discharged. Counseled patient regarding suspected diagnosis. As well as the need for follow-up. Discharged home with verbal and written instructions. They were instructed to return as needed for persistent or worsening symptoms or any new concerns. Condition at disposition is stable. SIGNATURE: Peyton Walker, DO Peyton Walker, DO 11/30/17 1737 Peyton Walker, DO 11/30/17 1737 ALLERGIES ALLERGIES DATE TYPE / CODE NAME / CODE REACTION SEVERITY SOURCE 02/23/2018 Drug Penicillins/P00017 Hives Unknown [place] Allergy/416 0476(RXNORM) [facility] [id number]([facility] ED CT) Repository 05/10/2014 Drug PENICILLINS HIVES [facility] Class/56735 Other [place] 100[address]([facility] [place] ENCOUNTERS ENCOUNTERS ADMIT/DISCHARGE ACCOUNT ADMITTING ENCOUNTER LOCATION SOURCE NUMBER CLASS 03/01/2018/03/04/20 [id number] [place], Inpatient [place] Encounter [facility] ing:[id number]: Repository [id number]: 1 03/01/2018 [id number] [place], Ambulatory BMSBuilding:[place] [facility] Repository 03/01/2018 [id number] [place], Ambulatory [facility]Building:[place] [facility] Repository 03/01/2018 [id number] [place], Ambulatory BMSBuilding:[place] [facility] Repository 03/01/2018 [id number] [place], Ambulatory BMSBuilding:[place] [facility] Repository 03/01/2018/03/01/20 [id number] Emergency [address] Repository 02/23/2018/02/24/20 [id number] Emergency [address] ing:ED Repository 02/22/2018/02/23/20 [id number] Emergency [address] Repository PAYERS PAYERS ENCOUNTER GUARANTOR PAYER SUBSCRIBER SOURCE 03/01/2018 KYLIE Branch Primary NOT GIVENUNK [place] [id number] Insurance:SELF PAY [facility] Number: Effective Repository [phone]: (330) Date:2018-03-01 [id number] () 03/01/2018 KYLIE B Primary NOT GIVENUNK [place] [id number] Insurance:[place]LF [place] [facility] Number: Effective Repository [phone]: (330) Date:2018-03-01 [id number] (HP) 03/01/2018 KYLIE Branch Primary NOT GIVENUNK [place] [id number] Insurance[place]LF [place] [facility]: [place] Repository [id number]: (330) Date:2018-03-01 [id number] () 03/01/2018 KYLIE Branch Primary NOT GIVENUNK [place] [id number] Insurance[place]LF [place] [facility] Repository [id number]: (330) Date:2018-03-01 [id number] () 03/01/2018 KYLIE Branch Primary NOT GIVENUNK [place] [id number] Insurance[place]LF [place] [facility]: [place] Repository [id number]: (330) Date:2018-03-01 [id number] () 02/23/2018 KYLIE Branch Primary NOT GIVENUNK [place] [id number] Insurance[place]LF [place] [facility]: [place] Repository [id number]: (330) Date:2018-02-23 [id number] ()
== END 2018-02-23 18:03 | disposition home or self-care (01) ==
LOC: ED 18:03
PROVIDERS: Emergency Provider Emergency Medicine
DX: K04.7 Periapical abscess without sinus (principal); Z88.0 Allergy status to penicillin
CPT/HCPCS: 99283

== ENCOUNTER 2018-03-01 21:41 | Inpatient (IN) | payer SELFPAY ==
[2018-03-01 21:58] VITALS: BMI 29.8
[2018-03-01 22:09] VITALS: BP 145/86; PULSE 94; RESP 18; TEMP 37.7; O2SAT 95
--- NOTE | 2018-03-01 23:27 | PCM.HP.STD ---
Problem List (1) Odontogenic infection of jaw Status: Acute (2) HTN (hypertension) Status: Chronic History of Present Illness Date of Admission: 03/01/18 Chief Complaint: Left jaw pain The patient is a 57 year old M with a significant history of hypertension who presented because of progressively worsening excruciating pain of his left jaw that started about a week and a half ago. Patient was transferred from [facility] ED because of lack of specialist to see patient. Patient described the quality of his pain as severe and aching. He reports that the pain has been radiating to his entire head but he thinks the radiation started because of excessive use of ibuprofen. His pain is aggravated with drinking. Patient reports night sweats. Patient went to [facility] about a week ago and was given clindamycin and ibuprofen. He was at our emergency department about 6 days ago and was given clindamycin p.o. and Slaughters. He reported that because he does not like taking narcotic medication he did not take Slaughters but he continued to take ibuprofen and extra strength Tylenol. Because he was not he was not getting better patient again presented to [place] today (03-01-2018). At [place] ED patient had a temperature of 100.6. He had a blood pressures of 170/96; 155/93; 118/72. His heart rate ranged from 84- to 92. CT of the maxillofacial with contrast at [facility] ED showed findings suggestive of extensive odontogenic infection involving the left tank insulator rubber space and tongue base without evidence of abscess formation; and prominent sialoadenitis involving the left submandibular gland. At [facility] because patient reported an allergy to penicillin he was given clindamycin and Levaquin IV and he was brought to the hospital. He was also given Toradol. On presentation at our hospital patient reported feeling a little better and attributed his temporal relief to the regimen given at [facility] ED. Allergy: Patient reported that he has hives on his body and rashes on his tongue when he receives penicillin. Patient reports that the last time that he saw a dentist was years ago. He reports pulling his teeth by himself. He reported the last time that he pulled his teeth by himself was about 7 years ago. Past Medical History Past Medical History (Chronic Problems): Chronic Problems HTN (hypertension) (Chronic) Allergies Penicillins Adverse Reaction (Verified 02/23/18 16:12) Hives Home Medications: Ambulatory Orders Medication Instructions Recorded Clindamycin [Cleocin] 300 mg PO 4X/DAY #80 cap 02/23/18 Surgical History: - - Rales in left knee and ankle Lives: Alone Smoking Status: Current every day smoker - Last smoke about a week ago Tobacco Use: Cigarettes Alcohol: None Review of Systems Constitutional: Denies: Chills, Fever, Weight Change HEENT: Reports: Head Aches. Denies: Sinus Congestion, Sinus Drainage Cardiovascular: Denies: Chest Pain, Palpitations Respiratory: Denies: Cough, Shortness of breath at rest, Sputum production Gastrointestinal: Denies: Abdominal Pain, Nausea, Vomiting Genitourinary: Denies: Dysuria Musculoskeletal: Denies: Joint Pain, Joint Tenderness Skin: Denies: Rash, Wounds Neurological: Denies: Numbness, Tingling, Focal weakness Psychiatric: Denies: Anxiety, Depression, Homicidal Ideations, Suicidal Ideations Hematologic/ Lymphatic: Denies: Easy Bruising, Easy Bleeding VTE Information - Inpt Only VTE Present on Admission: No VTE Mechan Device Prophylaxis: None VTE Pharm Prophylaxis ordered?: Yes Patient Problems: Active and Suspected Problems Odontogenic infection of jaw (Acute) - Physical Exam General: Alert, Oriented x3, Cooperative HEENT: Atraumatic, - - Swelling of left maxillary and mandible area. Poor dentition with loss of multiple teeth. Tender left mandibular and maxillary area. Neck: Supple, No JVD, Negative Carotid Bruits Lungs: Clear to auscultation, Normal air movement Cardiovascular: Regular rate, No murmurs Abdomen: Bowel Sounds Present, Soft, Non Tender Extremities: No edema, Capillary Refill Less than 3 Seconds Skin: No rashes, No breakdown Musculoskeletal: No Tenderness to Palpation of Joints or Extremities Neurological: Neuro grossly intact Psych/Mental Status: Normal Affect, Appropriate Vital Signs Temp Pulse Resp BP Pulse Ox 99.8 F H 94 18 145/86 H 95 03/01/18 22:09 03/01/18 22:09 03/01/18 22:09 03/01/18 22:09 03/01/18 22:09 Oxygen Delivery Method Room Air Weight: 99.79 kg Body Mass Index (BMI) 29.8 Assessment/Plan All Active Problems Odontogenic infection of jaw (Acute) The patient is a 57 year old M with a significant history of hypertension who was transferred from [place] ED because of progressively worsening excruciating pain of his left jaw that started about a week and a half ago and with radiographic evidence of extensive odontogenic infection involving the left tank insulator rubber space and tongue base without evidence of abscess formation; as well as prominence sialoadenitis involving the left submandibular gland. Extensive odontogenic infection with Sialoadenitis We will continue patient on clindamycin IV and Levaquin IV that was started from [place] ED. Initially patient was started on morphine IV as needed for pain. Because he continued to have severe pain with IV morphine, his pain regimen was changed to Dilaudid IV. However because he continued to have pain, Toradol IV was added to his regimen. Supportive treatment with IV fluids and as needed antiemetics. Tylenol for fever. Consults: Oral/Maxillofacial surgeon and ID specialist to optimize management. Hypertension Patient reports previous history of hypertension for which he was taking blood pressure medication. However he reports not taking blood pressure medication for a while. It could be his pain causing elevated blood pressures or essential hypertension. Hydralazine as needed for pain.. Tobacco abuse Reportedly patient has not smoked for about 1 week. The day before his admission he smoked tobacco and felt very nauseous. Patient was counseled. He declines nicotine patch. He is confident that he will not smoke again. DVT prophylaxis Subcutaneous heparin. Code Visit Inpatient E&M: 13125 Init Hosp L3
[2018-03-02] MEDS: 0.9% Normal Saline 1,000 ML 75 ML IV (00:10)
[2018-03-02] MEDS: 0.9% NaCl Peripheral Flush Adult/Peds IV ×7 (00:10→17:32)
[2018-03-02 00:19] VITALS: BP 145/81; PULSE 91; RESP 18; TEMP 37.2; O2SAT 97
[2018-03-02] MEDS: Morphine 2 MG/ML Syringe IV (00:20)
[2018-03-02] MEDS: MELATONIN 3 MG TABLET 6 MG PO ×2 (00:38→22:12)
[2018-03-02] MEDS: HYDROmorphone 1 MG/ML Syringe IV ×3 (01:34→22:12)
[2018-03-02] MEDS: Ketorolac 30 MG/ML Syringe IV ×2 (04:16→15:13)
[2018-03-02 05:52] LABS: Absolute Lymphocyte Count 1.34 X10^3/ul (0.83-4.51); Absolute Neutrophil Count 11.9 X10^3/uL (2.0-7.7); Basophil# 0.02 X10^3/uL; Basophil% 0.1 % (0-1); Eosinophil# 0.01 X10^3/uL; Eosinophils% 0.1 % (0-5); Hematocrit 41.5 % (40-54); Hemoglobin 13.7 g/dl (13.0-16.5); Lymphocyte # 1.34 X10^3/ul (4.0); Mean Corpuscular Volume 87.9 fL (80-94); Mean Platelet Vol. 10.2 fl (6.2-12.0); Monocyte% 10.1 % (0-10); Neutrophil # 11.94 X10^3/uL (2.7-7.7); Neutrophil % 80.5 % (47-70); Platelet Count 211 K/mm3 (150-450); RBC Distribution Width CV 13.2 % (11.6-14.6); RBC Distribution Width SD 42.5 fl (35.1-43.9); Red Blood Count 4.72 M/mm3 (4.6-6.2); White Blood Count 14.8 K/mm3 (4.4-11.0)
[2018-03-02 05:56] LABS: POSITIVE COUNT NO; POSITIVE DIFFERENTIAL NO; POSITIVE MORPHOLOGY NO
[2018-03-02 06:11] LABS: Anion Gap 10 (5-15); BUN 17 mg/dL (7-18); BUN/Creat Ratio 16.3 RATIO (10-20); Calcium,Total 8.5 mg/dL (8.5-10.1); Chloride 103 mmol/L (98-107); Creatinine, Serum 1.04 mg/dL (0.70-1.30); EST Glomerular Filtration Rate 78 mL/min (>60); Est Glom Filt Rate - Afr Amer 94 mL/min (>60); Estimated Creatinine Clearance 84.98 ml/min; Glucose 111 mg/dL (74-106); Potassium 3.7 mmol/L (3.5-5.1); Sodium Level 139 mmol/L (136-145)
[2018-03-02 06:26] VITALS: BP 129/63; PULSE 80; RESP 16; TEMP 37.3; O2SAT 94
[2018-03-02] MEDS: Heparin Injection (Vial) 5,000 UNIT/ML VIAL 5000 UNIT SC ×3 (06:30→22:11)
[2018-03-02 07:50] VITALS: O2SAT 93
[2018-03-02 08:45] VITALS: BP 155/95; PULSE 87; RESP 18; TEMP 37.2; O2SAT 100
--- NOTE | 2018-03-02 10:35 | PCM.HP.ID ---
Reason for Consult: Odontogenic infection Consulted by: Dr. Gama History of Present Illness: The patient is a 57 year old M [] This is a 57-year-old gentleman with a history of hypertension untreated who presents with roughly a 10-day course of progressive pain and swelling in the left side of his jaw with difficulty opening his mouth. Patient was seen in emergency department at [facility] roughly a week ago and was given oral clindamycin as well as a pain medication with no clinical improvement. Patient did have a leukocytosis and low-grade fevers upon presentation. Patient does have a history of poor dentition. No cardiopulmonary distress. No chest pain. Denies any night sweats. His symptoms initially started around which was roughly 10 days ago. He is otherwise hemodynamically stable. He does have allergy to penicillin which causes hives and blisters. Currently on fluoroquinolone levofloxacin as well as parenteral clindamycin. - Medical History Past Medical History (Chronic Problems): Chronic Problems HTN (hypertension) (Chronic) Allergies/Adverse Reactions: Allergies Penicillins Adverse Reaction (Verified 02/23/18 16:12) Hives Home Medications: Ambulatory Orders Medication Instructions Recorded Clindamycin [Cleocin] 300 mg PO 4X/DAY #80 cap 02/23/18 Vital Signs Temp Pulse Resp BP Pulse Ox 99.2 F H 80 16 129/63 H 93 03/02/18 06:26 03/02/18 06:26 03/02/18 06:26 03/02/18 06:26 03/02/18 07:50 Oxygen Delivery Method Room Air Weight: 99.79 kg Body Mass Index (BMI) 29.8 Laboratory Tests Past 24 Hrs 03/02/18 03/02/18 05:15 05:15 WBC 14.8 H RBC 4.72 Hgb 13.7 Hct 41.5 MCV 87.9 MCH 29.0 MCHC 33.0 RDW 13.2 RDW Differential 42.5 Plt Count 211 MPV 10.2 Immature Gran % (Auto) 0.200 Neut % (Auto) 80.5 H Lymph % (Auto) 9.0 L [place] % (Auto) 10.1 H Eos % (Auto) 0.1 Baso % (Auto) 0.1 Absolute Neuts (auto) 11.9 H Absolute Lymphs (auto) 1.34 Total Counted Not Reportable Sodium 139 Potassium 3.7 Chloride 103 Carbon Dioxide 26.0 Anion Gap 10 BUN 17 Creatinine 1.04 Estim Creat Clear Calc 84.98 Est GFR (MDRD) Af Amer 94 Est GFR (MDRD) Non-Af 78 BUN/Creatinine Ratio 16.3 Glucose 111 H Calcium 8.5 - Other Studies Radiology: [] Other Studies: [] Route of nutrition/ use of supplements: [] Nutritional Intake: [] IV Site: [] Travis Catheter: [] Patient is alert does not appear toxic. Left side of his jaw swollen with localized tenderness. No crepitus. Lungs are clear heart exam S1-S2 abdomen soft nontender his dentition is very poor. - Assessment/Plan Antibiotics: [] Assessment/Plan: [] Active and Suspected Problems Odontogenic infection of jaw (Acute) At this time we will continue empiric antimicrobial therapy in the form of levofloxacin and clindamycin. Oral surgeon has been consulted. Follow his white count and clinical course closely.
[2018-03-02 15:10] VITALS: BP 127/74; PULSE 79; RESP 16; TEMP 37.7; O2SAT 95
--- NOTE | 2018-03-02 16:22 | CASEMGMT ---
Social Work Unit - MS3 Reason for referral: Self pay status Summary: Attempted to meet with patient to discussed and explore resource need relating to self pay status. Patient's daughter and a grandson in the room visiting. Patient asked if socia worker can return to discuss when visitors are not present. assembly worker agreed to try back at a later time. Plan: see patient as time allows for resources. -TOBY Lazar, ASSISTANT PROFESSOR OF NURSING
[2018-03-02] MEDS: levoFLOXacin IV 750 MG/150 ML BAG 100 MG IV (17:32)
--- NOTE | 2018-03-02 18:23 | PCM.PROGNOTE ---
Patient Problems: Active and Suspected Problems Odontogenic infection of jaw (Acute) Subjective: Patient was seen and examined today, oral surgery is not available to see the patient in consultation, I talked with infectious diseases today and they recommended stopping the patient's Levaquin and continuing clindamycin. Patient is still having some pain in his left jaw but it is improved from yesterday. - Physical Exam General: Alert, Oriented x3, Cooperative, No apparent distress HEENT: Atraumatic, PERRLA, EOMI, Normocephalic, - - Tenderness is noted over the patient's left jaw area to palpation Oral: Moist Mucosa Neck: Supple, No Nuchal Rigidity, Trachea Midline, Thyroid Normal Size and Texture Lungs: Clear to auscultation, Normal air movement, No rhonchi, No wheeze, No rales Cardiovascular: Regular rate, Regular Rhythm, Normal S1, Normal S2, No murmurs, No Ectopic Activity, PMI Normal, No rub noted, No Gallop Abdomen: Bowel Sounds Present, Soft, Non Tender, Non-Distended, No hernias noted Extremities: No clubbing, No cyanosis, No edema, Capillary Refill Less than 3 Seconds Skin: No rashes, No breakdown Neurological: Cranial nerves II-XII grossly intact, Neuro grossly intact, Sensory exam intact to light touch and pain, Coordination normal Psych/Mental Status: Normal Affect, Appropriate, Alert and oriented to time, place, person, mood and affect Vital Signs Temp Pulse Resp BP Pulse Ox 99.8 F H 79 16 127/74 H 95 03/02/18 15:10 03/02/18 15:10 03/02/18 15:10 03/02/18 15:10 03/02/18 15:10 Oxygen Delivery Method Room Air Weight: 99.79 kg Body Mass Index (BMI) 29.8 Intake and Output for Last 24 Hours 02/28/18 03/01/18 03/02/18 23:59 23:59 23:59 Intake Total 1285 / 1285 Output Total 650 / 650 Balance 635 / 635 Laboratory Tests Past 24 Hrs 03/02/18 03/02/18 05:15 05:15 WBC 14.8 H RBC 4.72 Hgb 13.7 Hct 41.5 MCV 87.9 MCH 29.0 MCHC 33.0 RDW 13.2 RDW Differential 42.5 Plt Count 211 MPV 10.2 Immature Gran % (Auto) 0.200 Neut % (Auto) 80.5 H Lymph % (Auto) 9.0 L [place] % (Auto) 10.1 H Eos % (Auto) 0.1 Baso % (Auto) 0.1 Absolute Neuts (auto) 11.9 H Absolute Lymphs (auto) 1.34 Total Counted Not Reportable Sodium 139 Potassium 3.7 Chloride 103 Carbon Dioxide 26.0 Anion Gap 10 BUN 17 Creatinine 1.04 Estim Creat Clear Calc 84.98 Est GFR (MDRD) Af Amer 94 Est GFR (MDRD) Non-Af 78 BUN/Creatinine Ratio 16.3 Glucose 111 H Calcium 8.5 Medical Necessity - Tobacco Use Smoking Status: Current every day smoker - Last smoke about a week ago Tobacco Use: Cigarettes Assessment/Plan All Active Problems Odontogenic infection of jaw (Acute) #1 bacterial infection of the left paraffin plant operator space and tongue base without evidence of abscess formation-patient will continue on IV clindamycin, ID is participating in his care, oral surgery will see the patient in consultation when they are able Code Visit Inpatient E&M: 63416 Subs Hosp L2
[2018-03-02 22:03] VITALS: BP 145/90; PULSE 82; RESP 16; TEMP 36.7; O2SAT 95
[2018-03-03 02:38] VITALS: BP 138/76; PULSE 76; RESP 14; TEMP 36.8; O2SAT 97
[2018-03-03] MEDS: Ketorolac 30 MG/ML Syringe IV ×2 (03:29→10:37)
[2018-03-03] MEDS: 0.9% NaCl Peripheral Flush Adult/Peds IV ×3 (03:29→14:32)
[2018-03-03] MEDS: Heparin Injection (Vial) 5,000 UNIT/ML VIAL 5000 UNIT SC ×3 (05:53→21:05)
[2018-03-03 07:06] VITALS: O2SAT 94
[2018-03-03 08:38] VITALS: BP 145/92; PULSE 76; RESP 16; TEMP 36.4; O2SAT 97
[2018-03-03 08:46] LABS: Absolute Lymphocyte Count 1.85 X10^3/ul (0.83-4.51); Absolute Neutrophil Count 4.9 X10^3/uL (2.0-7.7); Basophil# 0.03 X10^3/uL; Basophil% 0.4 % (0-1); Eosinophil# 0.08 X10^3/uL; Eosinophils% 1.1 % (0-5); Hematocrit 40.3 % (40-54); Hemoglobin 13.3 g/dl (13.0-16.5); Lymphocyte # 1.85 X10^3/ul (4.0); Lymphocyte % 24.4 % (19-41); Mean Corpuscular Volume 87.8 fL (80-94); Mean Platelet Vol. 9.7 fl (6.2-12.0); Monocyte# 0.73 X10^3/uL; Monocyte% 9.6 % (0-10); Neutrophil # 4.88 X10^3/uL (2.7-7.7); Neutrophil % 64.4 % (47-70); Platelet Count 200 K/mm3 (150-450); RBC Distribution Width CV 13.1 % (11.6-14.6); Red Blood Count 4.59 M/mm3 (4.6-6.2); White Blood Count 7.6 K/mm3 (4.4-11.0)
[2018-03-03 08:47] LABS: POSITIVE COUNT NO; POSITIVE DIFFERENTIAL NO; POSITIVE MORPHOLOGY NO
--- NOTE | 2018-03-03 10:05 | CASEMGMT ---
ARISTEO WINTER Face to Face with patient for initial transition planning/care coordination assessment. RN CM introduced self and role at [facility]. Patient lying in bed, alert and oriented. Patient willing to participate in assessment and is able to answer all questions appropriately. Care providers, pharmacy, and demographics verified. Patient wishes to discharge home, denies need for home health at this time. Patient states he has no further needs or concerns at this time. CM to follow for discharge planning needs that may arise. PCP: None, list of local physicians provided Specialists: None Preferred Pharmacy: [facility] Insurance: None Prescription Benefit: None Living Will/HPOA: None LNOK: Mother Living Arrangements: Patient lives alone in 1 story home, independent at home. Transportation: Self/mother DME/HHC: None, denied need for DME Disposition Plan: Patient to discharge home with family support and follow-up plans in place. SW following for SP. Charu ALEGRIA, RN, CM
[2018-03-03 14:38] VITALS: BP 157/95; PULSE 80; RESP 16; TEMP 36.6; O2SAT 97
--- NOTE | 2018-03-03 16:17 | CASEMGMT ---
Social Work Unit - [facility]3 Followed up with patient about self pay status. Patient sleeping in bed, but woke with social work case manager coming up to bed and calling out patient's name. Patient talkative and reflective during social work visiting, talking about mother, 6 children, and 13 grandchildren. Patient talked about how much enjoys the grandchildren and spending time with family. Patient confirms that is self pay, will get benefits when hired in at current company. Patient unsure how long this will take but right now works about 4 - 10 hours days a week, as set up through a [employer] agency. Patient agreeable to fill out a medicaid application and reports is able to read, write, and fill out the form on his own. Patient denies any particular concerns at this time and reports would be able to afford prescriptions on 4 dollar lists at local pharmacies. Patient did accept resources offered today. Provided patient with: Medicaid application, food/meal list in the area, 211 information, People [employer] People, and list of prescription assistance programs. Christine Beltran information given. Let patient know that if patient completes medicaid application while in the hospital this can be faxed to S. Plan: Patient to home, self pay resources given. Social work to follow however about medicaid application as well as whether patient may need more help with prescription at time of discharge. -TOBY Lazar, COSMETIC SURGEON
--- NOTE | 2018-03-03 19:36 | PCM.PROGNOTE ---
Patient Problems: Active and Suspected Problems Odontogenic infection of jaw (Acute) Subjective: Patient was seen and examined today, he remains afebrile, his white blood cell count now is normal. Patient still has significant swelling around the left jawline, he is able to eat without any problems. I talked briefly with oral surgery today and they recommended the patient follow-up in their office rather than be seen in the hospita-Dr. Ulloa stated that the examination would be much more thorough if it was done in his office. - Physical Exam General: Alert, Oriented x3, Cooperative, No apparent distress HEENT: Atraumatic, PERRLA, EOMI, Normocephalic, - - There is marked swelling noted over the patient's left submandibular area and over the angle of the jaw on the left Oral: Moist Mucosa Neck: Supple, Trachea Midline, Thyroid Normal Size and Texture Lungs: Clear to auscultation, Normal air movement, No rhonchi, No wheeze, No rales Cardiovascular: Regular rate, No murmurs Abdomen: Bowel Sounds Present, Soft, Non Tender, Non-Distended, No hernias noted Extremities: No clubbing, No cyanosis, No edema, Capillary Refill Less than 3 Seconds Skin: No rashes, No breakdown Musculoskeletal: No Tenderness to Palpation of Joints or Extremities Neurological: Cranial nerves II-XII grossly intact, Neuro grossly intact, Sensory exam intact to light touch and pain, Coordination normal Psych/Mental Status: Normal Affect, Appropriate, Alert and oriented to time, place, person, mood and affect Vital Signs Temp Pulse Resp BP Pulse Ox 97.9 F 80 16 157/95 H 97 03/03/18 14:38 03/03/18 14:38 03/03/18 14:38 03/03/18 14:38 03/03/18 14:38 Oxygen Delivery Method Room Air Weight: 99.79 kg Body Mass Index (BMI) 29.8 Intake and Output for Last 24 Hours 03/01/18 03/02/18 03/03/18 23:59 23:59 23:59 Intake Total 1785 / 1785 732 / 732 Output Total 650 / 650 450 / 450 Balance 1135 / 1135 282 / 282 Laboratory Tests Past 24 Hrs 03/03/18 08:30 WBC 7.6 RBC 4.59 L Hgb 13.3 Hct 40.3 MCV 87.8 MCH 29.0 MCHC 33.0 RDW 13.1 RDW Differential 42.0 Plt Count 200 MPV 9.7 Immature Gran % (Auto) 0.100 Neut % (Auto) 64.4 Lymph % (Auto) 24.4 [place] % (Auto) 9.6 Eos % (Auto) 1.1 Baso % (Auto) 0.4 Absolute Neuts (auto) 4.9 Absolute Lymphs (auto) 1.85 Total Counted Not Reportable Medical Necessity - Tobacco Use Smoking Status: Current every day smoker - Last smoke about a week ago Tobacco Use: Cigarettes Assessment/Plan All Active Problems Odontogenic infection of jaw (Acute) #1 bacterial infection of the left auricular acupuncturist space and tongue base without evidence of abscess formation-patient will continue on IV clindamycin, ID is participating in his care, patient will be reevaluated in the morning, if he is able to swallow without difficulty tomorrow morning, I will discharge him on oral antibiotics with follow-up in Dr. Ulloa's office on Friday. Code Visit Inpatient E&M: 52831 Subs Hosp L2
--- NOTE | 2018-03-03 19:39 | PN_ITS ---
Patient Problems: Active and Suspected Problems Odontogenic infection of jaw (Acute) Subjective: Patient was seen and examined today, he remains afebrile, his white blood cell count now is normal. Patient still has significant swelling around the left jawline, he is able to eat without any problems. I talked briefly with oral dowd rgery today and they recommended the patient follow-up in their office rather than be seen in the hospita-Dr. Ulloa stated that the examination would be much more thorough if it was done in his office. - Physical Exam General: Alert, Oriented x3, Cooperative, No apparent distress HEENT: Atraumatic, PERRLA, EOMI, Normocephalic, - - There is marked swelling noted over the patient's left submandibular area and over the angle of the jaw on the left Oral: Moist Mucosa Neck: Supple, Trachea Midline, Thyroid Normal Size and Texture Lungs: Clear to auscultation, Normal air movement, No rhonchi, No wheeze, No rales Cardiovascular: Regular rate, No murmurs Abdomen: Bowel Sounds Present, Soft, Non Tender, Non-Distended, No hernias noted Extremities: No clubbing, No cyanosis, No edema, Capillary Refill Less than 3 Seconds Skin: No rashes, No breakdown Musculoskeletal: No Tenderness to Palpation of Joints or Extremities Neurological: Cranial nerves II-XII grossly intact, Neuro grossly intact, Sensory exam intact to light touch and pain, Coordination normal Psych/Mental Status: Normal Affect, Appropriate, Alert and oriented to time, place, person, mood and affect Vital Signs Temp Pulse Resp BP Pulse Ox 97.9 F 80 16 157/95 H 97 03/03/18 14:38 03/03/18 14:38 03/03/18 14:38 03/03/18 14:38 03/03/18 14:38 Oxygen Delivery Method Room Air Weight: 99.79 kg Body Mass Index (BMI) 29.8 Intake and Output for Last 24 Hours 03/01/18 03/02/18 03/03/18 23:59 23:59 23:59 Intake Total 1785 / 1785 732 / 732 Output Total 650 / 650 450 / 450 Balance 1135 / 1135 282 / 282 Laboratory Tests Past 24 Hrs 03/03/18 08:30 WBC 7.6 RBC 4.59 L Hgb 13.3 Hct 40.3 MCV 87.8 MCH 29.0 MCHC 33.0 RDW 13.1 RDW Differential 42.0 Plt Count 200 MPV 9.7 Immature Gran % (Auto) 0.100 Neut % (Auto) 64.4 Lymph % (Auto) 24.4 [place] % (Auto) 9.6 Eos % (Auto) 1.1 Baso % (Auto) 0.4 Absolute Neuts (auto) 4.9 Absolute Lymphs (auto) 1.85 Total Counted Not Reportable Medical Necessity - Tobacco Use Smoking Status: Current every day smoker - Last smoke about a week ago Tobacco Use: Cigarettes Assessment/Plan All Active Problems Odontogenic infection of jaw (Acute) #1 bacterial infection of the left technology lab teacher space and tongue base without ev idence of abscess formation-patient will continue on IV clindamycin, ID is participating in his care, patient will be reevaluated in the morning, if he is able to swallow without difficulty tomorrow morning, I will discharge him on oral antibiotics with follow-up in Dr. Ulloa's office on Friday. Code Visit Inpatient E&M: 59892 Subs Hosp L2
[2018-03-03 20:52] VITALS: BP 139/69; PULSE 74; RESP 16; TEMP 36.4; O2SAT 96
[2018-03-03] MEDS: MELATONIN 3 MG TABLET 6 MG PO (21:05)
[2018-03-03] MEDS: Acetaminophen 325 MG Tablet 650 MG PO (21:06)
[2018-03-04 03:32] VITALS: BP 154/90; PULSE 69; RESP 14; TEMP 37.1; O2SAT 96
[2018-03-04] MEDS: Acetaminophen 325 MG Tablet 650 MG PO (06:25)
[2018-03-04] MEDS: Heparin Injection (Vial) 5,000 UNIT/ML VIAL 5000 UNIT SC (06:25)
[2018-03-04 06:26] LABS: Absolute Lymphocyte Count 1.91 X10^3/ul (0.83-4.51); Absolute Neutrophil Count 3.4 X10^3/uL (2.0-7.7); Basophil# 0.05 X10^3/uL; Basophil% 0.8 % (0-1); Eosinophil# 0.22 X10^3/uL; Eosinophils% 3.5 % (0-5); Hematocrit 40.9 % (40-54); Hemoglobin 13.5 g/dl (13.0-16.5); Lymphocyte # 1.91 X10^3/ul (4.0); Mean Corpuscular Hgb 28.9 pg (27.0-32.0); Mean Corpuscular Volume 87.6 fL (80-94); Mean Platelet Vol. 10.4 fl (6.2-12.0); Monocyte# 0.83 X10^3/uL; Neutrophil # 3.35 X10^3/uL (2.7-7.7); Neutrophil % 52.5 % (47-70); Platelet Count 238 K/mm3 (150-450); RBC Distribution Width SD 41.1 fl (35.1-43.9); Red Blood Count 4.67 M/mm3 (4.6-6.2); White Blood Count 6.4 K/mm3 (4.4-11.0)
[2018-03-04 06:32] LABS: POSITIVE COUNT NO; POSITIVE DIFFERENTIAL NO; POSITIVE MORPHOLOGY NO
--- NOTE | 2018-03-04 08:34 | PN.ID_ITS ---
Patient Problems: Active and Suspected Problems Odontogenic infection of jaw (Acute) Subjective: Patient overall clinically stable. No fevers. Tolerates clindamycin well. No cardiopulmonary distress nor any gastrointestinal symptoms. Objective: Left jaw area less swollen and less tender. Patient is able to take p.o. intake. Lungs are clear heart exam S1-S2 abdomen soft nontender - Physical Exam Vital Signs Temp Pulse Resp BP Pulse Ox 98.8 F 69 14 154/90 H 96 03/04/18 03:32 03/04/18 03:32 03/04/18 03:32 03/04/18 03:32 03/04/18 03:32 Oxygen Delivery Method Room Air Weight: 99.79 kg Body Mass Index (BMI) 29.8 Intake and Output for Last 24 Hours 03/02/18 03/03/18 03/04/18 23:59 23:59 23:59 Intake Total 1785 / 1785 732 / 732 1200 / 1200 Output Total 650 / 650 450 / 450 Balance 1135 / 1135 282 / 282 1200 / 1200 Laboratory Tests Past 24 Hrs 03/03/18 03/04/18 08:30 05:42 WBC 7.6 6.4 RBC 4.59 L 4.67 Hgb 13.3 13.5 Hct 40.3 40.9 MCV 87.8 87.6 MCH 29.0 28.9 MCHC 33.0 33.0 RDW 13.1 13.0 RDW Differential 42.0 41.1 Plt Count 200 238 MPV 9.7 10.4 Immature Gran % (Auto) 0.100 0.200 Neut % (Auto) 64.4 52.5 Lymph % (Auto) 24.[address] [place] % (Auto) 9.6 13.0 H Eos % (Auto) 1.1 3.5 Baso % (Auto) 0.4 0.8 Absolute Neuts (auto) 4.9 3.4 Absolute Lymphs (auto) 1.85 1.91 Total Counted Not Reportable Not Reportable Medical Necessity - Tobacco Use Smoking Status: Current every day smoker - Last smoke about a week ago Tobacco Use: Cigarettes Route of nutrition/ use of supplements: [] Nutritional Intake: [] IV Site: [] Travis Catheter: [] - Assessment/Plan Odontogenic infection appears to be improving on parenteral clindamycin. Patient will need to see an oral surgeon soon given his poor dentition and active dental infection. If patient is discharged okay to go home on oral clindamycin 450 mg every 8 hours for 10 more days with close evaluation by an oral surgeon.
[2018-03-04 09:30] VITALS: BP 138/97; PULSE 73; RESP 16; TEMP 36.4; O2SAT 96
--- NOTE | 2018-03-04 11:56 | DCINST_ITS ---
- Discharge Diagnoses Current Active Problems: Current Active and Chronic Problems Odontogenic infection of jaw (Acute) HTN (hypertension) (Chronic) You will use the following diet at home:: No restrictions Your food should be the consistency of: Regular Your liquids should be the consistency of: Regular/Thin Discharge Activity: Return to Normal Activity Weight Bearing Status: Full weight bearing Allergies/Adverse Reactions: Allergies Penicillins Adverse Reaction (Verified 02/23/18 16:12) Hives Medications to take at Discharge Clindamycin [Cleocin] 300 mg PO 4X/DAY #80 cap 03/04/18 Oxycodone [Oxyir] 10 - 15 mg PO Q4H PRN PRN 7 Days #30 tab 03/04/18 The following prescriptions were given: Oxycodone [Oxyir] 10 - 15 mg PO Q4H PRN PRN 7 Days #30 tab PRN Reason: Severe Pain (-01/07) Clindamycin [Cleocin] 300 mg PO 4X/DAY #80 cap Primary Care Physician: Care Physician,No Primary [Primary Care Provider] - Test Results: Test results from this visit will be discussed in further detail at your follow- up appointment, if applicable. Please Follow Up With: Kofi Ulloa DDS When: this Friday
--- NOTE | 2018-03-04 13:30 | CASEMGMT ---
Social Work Note SW in to meet with pt to see if pt completed Medicaid application to fax to [facility]. SW introduced self and role at [facility]. Pt completed Medicaid Application and asked this worker to fax application. SW faxed Medicaid Application to [facility], gave pt original copy on application. 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
--- NOTE | 2018-03-05 10:30 | PCM.DC.SUM ---
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 Patient had localized swelling to the left jaw area and went to [facility] approximately a week before was given clindamycin and ibuprofen, he was then seen at the emergency room at [facility] approximately 6 days prior and given clindamycin and [place]. Patient was directly admitted to [place] [address] for further care from [facility] due to lack of oral surgeons at [facility]. Patient was admitted to [place] [address], he was placed on IV clindamycin and IV Levaquin, he was seen in consultation by infectious diseases who recommended stopping the Levaquin and continuing the clindamycin. Initially oral surgery was consulted to see the patient, however, after talking with oral surgery by phone, they requested that the patient come to their office for complete examination and agreed after discussing the patient's case that he should remain on clindamycin while in the hospital. On 03/04/18, patient was seen and examined:- Physical Exam General: Alert, Oriented x3, Cooperative, No apparent distress HEENT: Atraumatic, PERRLA, EOMI, Normocephalic, - - There is marked swelling noted over the patient's left submandibular area and over the angle of the jaw on the left Oral: Moist Mucosa Neck: Supple, Trachea Midline, Thyroid Normal Size and Texture Lungs: Clear to auscultation, Normal air movement, No rhonchi, No wheeze, No rales Cardiovascular: Regular rate, No murmurs Abdomen: Bowel Sounds Present, Soft, Non Tender, Non-Distended, No hernias noted Extremities: No clubbing, No cyanosis, No edema, Capillary Refill Less than 3 Seconds Skin: No rashes, No breakdown Musculoskeletal: No Tenderness to Palpation of Joints or Extremities Neurological: Cranial nerves II-XII grossly intact, Neuro grossly intact, Sensory exam intact to light touch and pain, Coordination normal Psych/Mental Status: Normal Affect, Appropriate, Alert and oriented to time, place, person, mood and affect Vital Signs as outlined in medical record On 03/04/18, patient was seen and examined felt to be in stable condition for discharge home, he was to follow-up with oral surgery within the week for complete exam in their office. - Physical Exam Vital Signs Temp Pulse Resp BP Pulse Ox 97.6 F L 73 16 138/97 H 96 03/04/18 09:30 03/04/18 09:30 03/04/18 09:30 03/04/18 09:30 03/04/18 09:30 Oxygen Delivery Method Room Air Weight: 99.79 kg Body Mass Index (BMI) 29.8 Intake and Output for Last 24 Hours 03/03/18 03/04/18 03/05/18 23:59 23:59 23:59 Intake Total 732 / 732 1200 / 1200 Output Total 450 / 450 Balance 282 / 282 1200 / 1200 Discharge Activity: Return to Normal Activity Weight Bearing Status: Full weight bearing Home Medications: Medications to take at Discharge Clindamycin [Cleocin] 300 mg PO 4X/DAY #80 cap 03/04/18 Oxycodone [Oxyir] 10 - 15 mg PO Q4H PRN PRN 7 Days #30 tab 03/04/18 Following Prescrptions Were Given to Patient: Oxycodone [Oxyir] 10 - 15 mg PO Q4H PRN PRN 7 Days #30 tab PRN Reason: Severe Pain (6-10/10) Clindamycin [Cleocin] 300 mg PO 4X/DAY #80 cap Primary Care Physician: Care Physician,No Primary [Primary Care Provider] - Please Follow Up With: Kofi Ulloa DDS When: this Friday Disposition: Home Minutes spent on discharge:: 32 Patient Condition:: Stable Medical Necessity - Tobacco Use Smoking Status: Current every day smoker - Last smoke about a week ago Tobacco Use: Cigarettes Meaningful Use Info Meaningful Use Diagnoses (Choose all that apply): None applicable Code Visit Inpatient E&M: 09540 Disch Hosp
--- NOTE | 2018-03-05 10:35 | DS.PCM_ITS ---
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 Patient had localized swelling to the left jaw area and went to [facility] approximately a week before was given clindamycin and ibuprofen, he was then seen at the emergency room at [facility] approximately 6 days prior and given clindamycin and [place]. Patient was directly admitted to [place] [address] for further care from [facility] due to lack of oral surgeons at [facility]. Patient was admitted to [place] [address], he was placed on IV clindamycin and IV Levaquin, he was seen in consultation by infectious diseases who recommended stopping the Levaquin and continuing the clindamycin. Initially oral surgery was consulted to see the patient, however, after talking with oral surgery by phone, they requested that the patient come to their office for complete examination and agreed after discussing the patient's case that he should remain on clindamycin while in the hospital. On 03/04/18, patient was seen and examined:- Physical Exam General: Alert, Oriented x3, Cooperative, No apparent distress HEENT: Atraumatic, PERRLA, EOMI, Normocephalic, - - There is marked swelling noted over the patient's left submandibular area and over the angle of the jaw on the left Oral: Moist Mucosa Neck: Supple, Trachea Midline, Thyroid Normal Size and Texture Lungs: Clear to auscultation, Normal air movement, No rhonchi, No wheeze, No rales Cardiovascular: Regular rate, No murmurs Abdomen: Bowel Sounds Present, Soft, Non Tender, Non-Distended, No hernias noted Extremities: No clubbing, No cyanosis, No edema, Capillary Refill Less than 3 Seconds Skin: No rashes, No breakdown Musculoskeletal: No Tenderness to Palpation of Joints or Extremities Neurological: Cranial nerves II-XII grossly intact, Neuro grossly intact, Sensory exam intact to light touch and pain, Coordination normal Psych/Mental Status: Normal Affect, Appropriate, Alert and oriented to time, place, person, mood and affect Vital Signs as outlined in medical record On 03/04/18, patient was seen and examined felt to be in stable condition for discharge home, he was to follow-up with oral surgery within the week for complete exam in their office. - Physical Exam Vital Signs Temp Pulse Resp BP Pulse Ox 97.6 F L 73 16 138/97 H 96 03/04/18 09:30 03/04/18 09:30 03/04/18 09:30 03/04/18 09:30 03/04/18 09:30 Oxygen Delivery Method Room Air Weight: 99.79 kg Body Mass Index (BMI) 29.8 Intake and Output for Last 24 Hours 03/03/18 03/04/18 03/05/18 23:59 23:59 23:59 Intake Total 732 / 732 1200 / 1200 Output Total 450 / 450 Balance 282 / 282 1200 / 1200 Discharge Activity: Return to Normal Activity Weight Bearing Status: Full weight bearing Home Medications: Medications to take at Discharge Clindamycin [Cleocin] 300 mg PO 4X/DAY #80 cap 03/04/18 Oxycodone [Oxyir] 10 - 15 mg PO Q4H PRN PRN 7 Days #30 tab 03/04/18 Following Prescrptions Were Given to Patient: Oxycodone [Oxyir] 10 - 15 mg PO Q4H PRN PRN 7 Days #30 tab PRN Reason: Severe Pain (6-10/10) Clindamycin [Cleocin] 300 mg PO 4X/DAY #80 cap Primary Care Physician: Care Physician,No Primary [Primary Care Provider] - Please Follow Up With: Kofi Ulloa DDS When: this Friday Disposition: Home Minutes spent on discharge:: 32 Patient Condition:: Stable Medical Necessity - Tobacco Use Smoking Status: Current every day smoker - Last smoke about a week ago Tobacco Use: Cigarettes Meaningful Use Info Meaningful Use Diagnoses (Choose all that apply): None applicable Code Visit Inpatient E&M: 16389 Disch Hosp
--- OUTSIDE RECORDS SUMMARY | 2018-04-25 01:58 | XMS RPT_ITS ---
:1960 Author Organization OHIP Support Name Relationship Address Phone AYAAL PICKENS Unavailable [address] + [place] [address] NEGAR, CRYSTAL Unavailable [address] + [place] [address] Avieon Unavailable [address] + [place] [address] AYALA PICKENS Unavailable [address] + [place] [address] NEGAR, CRYSTAL Unavailable [address] + [place] [address] Avieon Unavailable [address] + [place] [address] AYALA PICKENS Unavailable [address] + [place] [address] NEGAR, CRYSTAL Unavailable [address] + [place] [address] Avieon Unavailable [address] + [place] [address] AYALA PICKENS Unavailable [address] + [place] [address] NEGAR, CRYSTAL Unavailable [address] + [place] [address] Avieon Unavailable [address] + [place] [address] AYALA PICKENS Unavailable [address] + [place] [address] NEGAR, CRYSTAL Unavailable [address] + [place] [address] Avieon Unavailable [address] + [place] [address] NEGAR AYALA Unavailable [address] + [place] [address] NEGAR, CRYSTAL Unavailable [address] + [place] [address] Avieon Unavailable [address] + [place] [address] Care Team Providers Name Role Phone Juliane, Sunil Attending Unavailable Primay Care Physicia, No Primary [...] Unknown M27.2 - Florentino Cerda Community conditions [facility] / M27.2(ICD-10) Repository 03/01/2018 Active Cellulitis and PEYTON ALCANTARA Active [facility] abscess of mouth / [place] Other [place] K12.2(ICD-10) Repository 03/01/2018 Active Local infection of PEYTON ALCANTARA Active [facility] the skin and AL[place] Other [place] subcutaneous Repository tissue, unspecified / L08.9(ICD-10) 03/05/2018 Unknown K08.89 - Sunil Cochran Active [place] specified Community disorders of [facility] Hospital and supporting Repository structures / K08.89(ICD-10) PROCEDURES PROCEDURES No Procedure Records FoundRESULTS RESULTS DISCHARGE SUMMARY Observed: 03/05/2018 Status: F Source: [place] 10:36 AM [facility] REPOSITORY [facility] Medical Records Department [address] [place] [address] Discharge Summary 03/05/18 1030 MR#: [id number] Acct: [id number] Name: KYLIE PICKENS Rep #: [id number] : 1960 57 From: Clint Cerda DO PCP: Care Physician, No Primary Status: DIS IN Y Location: [place]3 [id number] Discharge Date and Diagnosis Date of Admission: 03/01/18 Date of Discharge: 03/05/18 - Primary Discharge Diagnosis #1 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 Patient had localized swelling to the left jaw area and went to [facility] approximately a week before was given clindamycin and ibuprofen, he was then seen at the emergency room at [facility] approximately 6 days prior and given clindamycin and [place]. Patient was directly admitted to [place] [address] for further care from [facility] due to lack of oral surgeons at [facility]. Patient was admitted to [place] [address], he was placed on IV clindamycin and [...] applicable Code Visit Inpatient E AND M: 23465 Disch Hosp 03/05/18 1036 <Electronically signed by Clint Cerda DO> Date Clint Cerda DO Cosigner Signature (if applicable): Date CC: No Primary Care Physician; Clint Cerda DO Signed DISCHARGE INSTRUCTION Observed: 03/04/2018 Status: F Source: [place] 11:56 AM [facility] REPOSITORY [facility] Medical Records Department [address] [place] [address] Instructions for Home/Discharge Instructions 03/04/18 1155 MR#: [id number] Acct: [id number] Name: KYLIE PICKENS Rep #: [id number] : 1960 57 From: Clint Cerda DO [...] 03/04/2018 Status: F Source: [place] 5:42 AM [facility] REPOSITORY TYPE CODE TESTS RESULT OUT [...] Lymph 1.91 Performed By: #### L100.0100 #### [facility] [address] [place], [address] CBC W/DIFF, AUTOMATED Collected: 03/03/2018 Status: F Source: [place] 8:30 AM [facility] REPOSITORY TYPE CODE TESTS RESULT OUT [...] Lymph 1.85 Performed By: #### L100.0100 #### [facility] [address] [place], [address] CONSULTATION Observed: 03/02/2018 Status: F Source: [place] 10:39 AM [facility] REPOSITORY [facility] Medical Records Department [address] [place] [address] Consultation 03/02/18 1035 MR#: [id number] Acct: [id number] Name: KYLIE PICKENS Rep #: [id number] : 1960 57 From: Neto Woodson MD PCP: Care Physician, No Primary Status: ADM MICKIE Y Location: [place] [address] Reason for Consult: Odontogenic infection Consulted by: [...] Patient was seen in emergency department at [facility] roughly a week ago and [...] Status: F Source: [place] EXAM 9:57 AM [facility] REPOSITORY [facility] Medical Records Department [address] [place] [address] History and Physical 03/01/18 8037 MR#: [id number] Acct: [id number] Name: KYLIE PICKENS Rep #: [id number] : 1960 57 From: Terry Booth MD PCP: Care Physician, No Primary Status: ADM MICKIE Y Location: [place] [address] Problem List (1) Odontogenic infection of jaw [...] a half ago. Patient was transferred from [facility] ED because of lack of specialist to see patient. Patient described the quality of his pain as severe and aching. He reports that the pain has been radiating to his entire head but he thinks the radiation started because of excessive use of ibuprofen. His pain is aggravated with drinking. Patient reports night sweats. Patient went to [facility] about a week ago and was given clindamycin and ibuprofen. He was at our emergency department about 6 days ago and was given clindamycin p.o. and [place]. He reported that because he does not like taking narcotic medication he did not take [place] but he continued to take ibuprofen and extra strength Tylenol. Because he was not he was not getting better patient again presented to [facility] today (03-01-2018). At [facility] ED patient had a temperature of 100.6. He had a blood pressures of 170/96; 155/93; 118/72. His heart rate ranged from 84- to 92. CT of the maxillofacial with contrast at [facility] ED showed findings suggestive of extensive odontogenic infection involving the left senior data mining analyst space and tongue base without evidence of abscess formation; and prominent sialoadenitis involving the left submandibular gland. At [facility] because patient reported an allergy to penicillin he was given clindamycin and Levaquin IV and he was brought to the hospital. He was also given Toradol. On presentation at our hospital patient reported feeling a little better and attributed his temporal relief to the regimen given at [facility] ED. Allergy: Patient reported that he has [...] history of hypertension who was transferred from [facility] ED because of progressively worsening excruciating pain of his left jaw that started about a week and a half ago and with radiographic evidence of extensive odontogenic infection involving the left senior data mining analyst space and tongue base without evidence of abscess formation; as well as prominence sialoadenitis involving the left submandibular gland. Extensive odontogenic infection with Sialoadenitis We will continue patient on clindamycin IV and Levaquin IV that was started from [facility] ED. Initially patient was started on morphine [...] heparin. Code Visit Inpatient E AND M: 72425 Init Hosp L3 03/02/18 0957 <Electronically signed by Terry Booth MD> Date Terry Booth MD Cosigner Signature: Date (if applicable) CC: No Primary Care Physician; Terry Booth MD Signed CBC W/DIFF, AUTOMATED Collected: 03/02/2018 Status: F Source: [place] 5:15 AM [facility] REPOSITORY TYPE CODE TESTS RESULT OUT [...] Lymph 1.34 Performed By: #### L100.0100 #### [facility] [address] [place], [place], [address] BASIC METABOLIC Collected: 03/02/2018 Status: F Source: [place] PROFILE (BMP) 5:15 AM [facility] REPOSITORY TYPE CODE TESTS RESULT OUT [...] GAP 10 Performed By: #### L500.2500 #### [facility] [place], [address] ED NOTE Observed: 03/01/2018 Status: COMPLETED Source: [place] 9:13 PM [facility] REPOSITORY HNO ID: [id number] Author: Diana AcevedoRn) Sonal, RN Service: Emergency Medicine Author Type: Registered Nurse Type: ED Notes Filed: 03/07/2018 3:38 AM Note Text: CHART ACCESSED FOR PI CHART AUDIT on 03/07/18 @ 0338 ED NOTE Observed: 03/01/2018 Status: COMPLETED Source: [place] 9:05 PM [facility] REPOSITORY HNO ID: [id number] Author: Aida (Rn) Edd, RN Service: Emergency Medicine Author Type: Registered Nurse Type: ED Notes Filed: 03/01/2018 9:13 PM Note Text: Pt w/ swelling to left face unchanged. Pt denies any pain at this time. Pt has been dozing past 2hrs. Resp easy. Skin warm AND dry. Saline lock x2 remain patent AND in place. Pt instructed to present to [place] ED for admission to hospital as a direct admit to room 314. Also instructed to remain NPO. Verbalized understanding. ED NOTE Observed: 03/01/2018 Status: COMPLETED Source: [place] [address]:22 PM [facility] REPOSITORY HNO ID: [id number] Author: Aida AcevedoRnTelma Puga RN Service: Emergency Medicine Author Type: Registered Nurse Type: ED Notes Filed: 03/01/2018 7:22 PM Note Text: Patient informed: the name of medication, why we are giving it, possible side effects, what they may expect to feel, and was offered a chance to ask questions, prior to the administration of clindamycin. ED NOTE Observed: 03/01/2018 Status: COMPLETED Source: [place] 6:53 PM [facility] REPOSITORY HNO ID: [id number] Author: Rosie Mallory RN Service: Emergency Medicine Author Type: Registered Nurse Type: ED Notes Filed: 03/01/2018 6:53 PM Note Text: Patient informed: the name of medication, why we are giving it, possible side effects, what they may expect to feel, and was offered a chance to ask questions, prior to the administration of toradol. ED NOTE Observed: 03/01/2018 Status: COMPLETED Source: [place] 6:53 PM [facility] REPOSITORY HNO ID: [id number] Author: Rosie Mallory RN Service: Emergency Medicine Author Type: Registered Nurse Type: ED Notes Filed: 03/01/2018 6:56 PM Note Text: Patient ambulates to bathroom ED NOTE Observed: 03/01/2018 Status: COMPLETED Source: [place] 6:44 PM [facility] REPOSITORY HNO ID: [id number] Author: Rosie Mallory RN Service: Emergency Medicine Author Type: Registered Nurse Type: ED Notes Filed: 03/01/2018 6:44 PM Note Text: Warm blanket,beverage and pillow given to patient. Lights turned off. ED PROV NOTE Observed: 03/01/2018 Status: COMPLETED Source: [place] 5:49 PM [facility] REPOSITORY HNO ID: [id number] Author: Peyton Walker DO Service: Emergency Medicine [...] is only willing to be admitted to [place]. He is refusing to go to [facility] or [facility]. He lives in [place]. Patient has a severe allergy to PCN, so I am limited in antibiotic choose. I have given him IV clindamycin and Levaquin for now. I spoke with Dr. Booth, hospitalist at [place], he is accepting for transfer. I have discussed acceptance with the patient. Patient is refusing ambulance transport. He states he wants to drive himself to [place]. He will sign out AMA since he is refusing transfer by ambulance where he can be continuously monitored. He states he will drive directly to [facility]. DispositionThe patient was AMA (transfer to [place], but refusing transport, so signed out AMA to drive himself to [place]). Condition at disposition is stable. SIGNATURE: Peyton Walker, DO Peyton Walker, 03/01/182022 ED NOTE Observed: 03/01/2018 Status: COMPLETED Source: [place] 5:21 PM [facility] REPOSITORY HNO ID: [id number] Author: Rosie Veloz) ARISTEO Mallory Service: Emergency Medicine Author Type: Registered Nurse Type: ED Notes Filed: 03/01/2018 5:21 PM Note Text: Beverage given to patient. He is sitting at bedside. Conversing normaly. ED NOTE Observed: 03/01/2018 Status: COMPLETED Source: [place] 4:38 PM [facility] REPOSITORY HNO ID: [id number] Author: Rosie Veloz) Mohamud, ARISTEO Service: Emergency Medicine Author Type: Registered Nurse Type: ED Notes Filed: 03/01/2018 7:02 PM Note Text: Returned from radiology CT MAXILLOFACIAL WITH Observed: 03/01/2018 Status: F Source: [employer] CONTRAST 4:38 PM HEALTH SYSTEM REPOSITORY Performed at [facility] APPROVED BY: GIOVANNY SHERWOOD MD EXAMINATION: CT [...] of radiopaque calculus along the course of Brusett's duct on the left. There is loss [...] suggesting extensive odontogenic infection involving the left senior data mining analyst space and tongue base without evidence of abscess formation. Prominent sialoadenitis involving the left submandibular gland. HEMOGRAM/MANUAL DIFF Collected: 03/01/2018 Status: F Source: [place] 4:08 PM [facility] REPOSITORY TYPE CODE TESTS RESULT OUT [...] 2.14 LAB LMONN(LOIN 0.20-1.00 thou/cmm C) Abs. Leslie 0.54 LAB LEOSN(LOIN 0.00-0.41 thou/cmm C) Abs. Eosin 0.00 LAB LBASN(LOIN 0.00-0.08 thou/cmm C) Abs. Baso 0.00 LAB LPLES(LOIN C) Platelet Estimate Normal LAB LWBCM(LOIN C) WBC Morphology see below Result Comment: Toxic vacuoles present LAB LTOXC(LOINC) Toxic Granulation Slight LAB LRBCM(LOINC) RBC Morphology Normal Performed By: #### LMCBD #### [place] [address] BASIC PANEL Collected: 03/01/2018 Status: F Source: [facility] 4:08 PM HEALTH SYSTEM REPOSITORY TYPE CODE TESTS RESULT OUT OF REFERENCE UNITS RANGE LAB CANAL EQUIPMENT MAINTENANCE SUPERVISOR(LOINC) 136-145 mEq/L Sodium Blood 139 LAB LK(LOINC) [...] 18 Ratio Performed By: #### LP8 #### [facility] [address] [place] [address] MDRD EGFR Collected: 03/01/2018 Status: F Source: [facility] 4:08 PM HEALTH SYSTEM REPOSITORY TYPE CODE TESTS RESULT OUT OF RANGE REFERENCE UNITS LAB LGFRF(LOINC >60mL/min/1.73m ) 2 eGFR >60 Result Comment: If the patient is , multiply the result by 1.210. Performed By: #### LGFR #### [facility] [address] [place] [address] ED NOTE Observed: 03/01/2018 Status: COMPLETED Source: [place] 3:48 PM [facility] REPOSITORY O ID: [id number] Author: Orlando (Rn) Anita RN Service: Emergency [...] EMERGENCY DEPARTMENT Observed: 02/23/2018 Status: F Source: [place] SUMMARY 8:29 PM [facility] REPOSITORY [facility] Medical Records Department [address] [place] [address] Emergency Department Summary 02/23/18 1736 MR#: [id number] Acct: [id number] Name: KYLIE PICKENS Rep #: [id number] : 1960 57 From: Sunil Cardozo MD [...] tooth #21 This note was generated with [employer] dictation software. It may contain incorrect words, spelling, and punctuation that were not noted in review of the chart prior to signing ED Disposition - Plan for ED Patient: Chief Complaint: Dental Instructions: ED Abscess Dental Prescriptions: Hydrocodone Bitart/Apap 5-325 [[place] 5MG-325MG] 1 tab PO Q6H PRN PRN 3 Days #10 tab PRN Reason: Pain Clindamycin [Cleocin] 300 mg PO 4X/DAY #80 cap What to do if you have Problems For any increased pain, shortness of breath, bleeding, nausea or vomiting, chest pain, or any unexpected problems, contact your Primary Care Provider. Call [facility] ([phone]) or report to the closest Emergency Room. Call 911 if necessary. 02/23/182028 <Electronically signed by Sunil Cardozo MD> Date Sunil Cardozo MD Cosigner Signature (If Indicated): Date CC: No Primary Care Physician ED NOTE Observed: 02/22/2018 Status: COMPLETED Source: [place] 11:46 AM [facility] REPOSITORY HNO ID: [id number] Author: Cori AcevedoRn) ARISTEO Yang Service: Emergency [...] ED NOTE Observed: 02/22/2018 Status: COMPLETED Source: [place] 11:25 AM [facility] REPOSITORY HNO ID: [id number] Author: Desire AcevedoRn) ARISTEO Saey Service: Emergency Medicine Author Type: Registered Nurse Type: ED Notes Filed: 02/22/2018 11:48 AM Note Text: Dr alcantara at bedside speaking with pt regarding plan of care and reasons she has ordered the iv, bloodwork and ct. Pt continues to refuse work up ED NOTE Observed: 02/22/2018 Status: COMPLETED Source: [place] 11:20 AM [facility] REPOSITORY HNO ID: [id number] Author: Desire (Rn) ARISTEO Seay Service: Emergency Medicine Author Type: Registered Nurse Type: ED Notes Filed: 02/22/2018 11:21 AM Note Text: Pt refusing iv, bloodwork and ct, told pt we will have the dr come talk to him, dr alcantara made aware ED PROV NOTE Observed: 02/22/2018 Status: COMPLETED Source: [place] 11:16 AM [facility] REPOSITORY HNO ID: [id number] Author: Peyton Walker DO Service: Emergency Medicine [...] ED NOTE Observed: 02/22/2018 Status: COMPLETED Source: [place] 11:02 AM [facility] REPOSITORY HNO ID: [id number] Author: Barbara Guillermo (Rn) ARISTEO Dasilva Service: (none) Author Type: Registered Nurse Type: ED Notes Filed: 02/22/2018 11:02 AM Note Text: Steady gait to ED bed 7 C/om left ear, and jaw pain since Friday ED NOTE Observed: 11/30/2017 Status: COMPLETED Source: [place] 5:51 PM [facility] REPOSITORY HNO ID: [id number] Author: Nikia AcevedoRn) ARISTEO Deleon Service: Emergency Medicine Author Type: Registered Nurse Type: ED Notes Filed: 12/04/2017 8:23 AM Note Text: Chart accessed for culture results Observed: 11/30/2017 Status: F Source: [facility] 5:35 PM HEALTH SYSTEM REPOSITORY Test performed at [facility] Moderate Gram positive cocci in clusters Few Polymorphonuclear leukocytes ORGANISM: Staphylococcus aureus (ID: 1) Many Performed By: #### C_AER #### [place] [address] Observed: 11/30/2017 Status: CANCELLED Source: [facility] 5:35 PM [facility] REPOSITORY Test performed at [facility] ED NOTE Observed: 11/30/2017 Status: COMPLETED Source: [place] 5:26 PM [facility] REPOSITORY HNO ID: [id number] Author: Patrice (Rn) ARISTEO Cordoba Service: Emergency Medicine Author Type: Registered Nurse Type: ED Notes Filed: 11/30/2017 5:26 PM Note Text: Doctor at Bedside for IANDD ED PROV NOTE Observed: 11/30/2017 Status: COMPLETED Source: [place] 5:09 PM [facility] REPOSITORY HNO ID: [id number] Author: Peyton Walker DO Service: Emergency Medicine [...] / CODE REACTION SEVERITY SOURCE 02/23/2018 Drug Penicillins/U06668 Hives Unknown [place] Allergy/416 0476(RXNORM) [facility] [id number]([facility] ED CT) Repository 05/10/2014 Drug PENICILLINS HIVES [facility] Class/11483 Other [place] 1003([facility] Repository CT) ENCOUNTERS ENCOUNTERS ADMIT/DISCHARGE ACCOUNT ADMITTING ENCOUNTER LOCATION SOURCE NUMBER CLASS 03/01/2018/03/04/20 [id number] [place], Inpatient [place] 18 Terry Encounter [facility] ing:RM0Qkrg: Repository CG250Gmy: 1 03/01/2018 [id number] [place], Ambulatory BMSBuilding:Jose Carlos Stewart [facility] Repository 03/01/2018 [id number] [place], Ambulatory BMSBuilding:[facility] Carlos Stewart [facility] Repository 03/01/2018 [id number] [place], Ambulatory BMSBuilding:[facility] Carlos Stewart [facility] Repository 03/01/2018 [id number] [place], Ambulatory BMSBuilding:[facility] Carlos [facility] Repository 03/01/2018/03/01/20 [id number] Emergency [address] Repository 02/23/2018/02/24/20 [id number] Emergency [address] ing:ED Repository 02/22/2018/02/23/20 [id number] Emergency [address] Repository PAYERS PAYERS ENCOUNTER GUARANTOR PAYER SUBSCRIBER SOURCE 03/01/2018 KYLIE Branch Primary NOT GIVENUNK [place] [id number] Insurance:SELF PAY [facility] Number: Effective Repository [phone]: ([phone]) Date:2018-03-01 [id number] () 03/01/2018 KYLIE B Primary NOT GIVENUNK [place] [id number] Insurance:[place]LF [place] [facility] Number: Effective Repository [phone]: ([phone]) Date:2018-03-01 [id number] (HP) 03/01/2018 KYLIE Branch Primary NOT GIVENUNK [place] [id number] Insurance:[place] [facility] Number: Effective Repository [phone]: ([phone]) Date:2018-03-01 [id number] () 03/01/2018 KYLIE Branch Primary NOT GIVENUNK [place] [id number] Insurance[place] [facility] Number[place] Effective Repository [phone]: ([phone]) Date:2018-03-01 [id number] () 03/01/2018 KYLIE Branch Primary NOT GIVENUNK [place] [id number] Insurance:[place] [facility] Number: Effective Repository [phone]: ([phone]) Date:2018-03-01 [id number] () 02/23/2018 KYLIE Branch Primary NOT GIVENUNK [place] [id number] Insurance:[place]LF [place] [facility] Number: Effective Repository [phone]: ([phone]) Date:2018-02-23 [phone] ()
== END 2018-03-04 14:25 | disposition home or self-care (01) | DRG 159 ==
PROVIDERS: Admitting Provider Hospitalist; Visit Provider Internal Medicine
DX: M27.2 Inflammatory conditions of jaws (principal); I10 Essential (primary) hypertension; F17.210 Nicotine dependence, cigarettes, uncomplicated; Z88.0 Allergy status to penicillin; K14.0 Glossitis; B96.89 Other specified bacterial agents as the cause of diseases classified elsewhere; K11.20 Sialoadenitis, unspecified
CPT/HCPCS: 36415; 80048; 85025; 97802; 99406; J7030; J7040; A4216